=== PATIENT | male | born 1990 | race Caucasian/White ===

== ENCOUNTER 2022-01-12 12:59 | Outpatient (CLI) | payer OTHER | END 2022-01-12 23:59 | disposition EMS.NT | LOC: EMS 12:59 | DX: Z04.1 Encounter for examination and observation following transport accident (principal) ==

== ENCOUNTER 2024-08-14 08:40 | Inpatient (IN) ==
[2024-08-14 09:17] LABS: BASOPHILS % (AUTO) 0.1 %; EOSINOPHILS % (AUTO) 1.5 %; HCT - HEMATOCRIT 49.5 % (42.0-52.0); HGB - HEMOGLOBIN 16.3 g/dL (14.0-18.0); LYMPHOCYTES % (AUTO) 3.3 %; MEAN CORPUSCULAR HEMOGLOBIN 30.4 pg (27.0-31.0); MEAN CORPUSCULAR HGB CONC 32.9 g/dL (32.0-36.0); MEAN CORPUSCULAR VOLUME 92.2 fL (80.0-94.0); MEAN PLATELET VOLUME 12.2 fL (7.4-11.4); MONOCYTES % (AUTO) 3.8 %; NEUTROPHILS % (AUTO) 90.3 %; PLT - PLATELET COUNT 240 10^3/uL (130-450); RED BLOOD COUNT 5.37 10^6/uL (4.70-6.10); RED CELL DISTRIBUTION WIDTH 12.5 % (12.0-15.0)
[2024-08-14 09:30] LABS: PARTIAL THROMBOPLASTIN TIME 30.5 secs (24.9-33.3)
--- NOTE | 2024-08-14 09:30 | XRAY Report ---
PROCEDURE: XR Knee 3V RT INDICATIONS: pain, injry TECHNIQUE: 3 views of the knee(s) were acquired. COMPARISON: None. FINDINGS: Bones: No fractures or dislocations. Mild degenerative change. No suspicious bony lesions. Soft tissues: No knee joint effusion. No suspicious soft tissue calcifications or masses. IMPRESSION: No acute bony abnormality. Mild degenerative change. Reviewed by: Miguel Garcia MD on 08/14/2024 9:28 AM PDT Approved by: Miguel Garcia MD on 08/14/2024 9:28 AM PDT Station ID: [id number]
[2024-08-14 09:35] LABS: INR 1.5 (0.8-1.2); PT - PROTHROMBIN TIME 17.2 secs (9.9-12.6)
--- NOTE | 2024-08-14 09:36 | ED Physician Documentation ---
History of Present Illness Stated complaint Stated Complaint: POSTERIOR RT KNEE PX Chief complaint Chief Complaint: Ext Problem History obtained from History obtained from: Patient Additonal information Additional information: The patient comes to the emergency department chief complaint of severe left calf pain and fever and chills that started last night. He states that he has been sick for couple of weeks with an upper respiratory type of illness but that seem to be getting better for a few days. He then began to spike fevers up again and now his leg is hurting. The patient denies any other focus of illness or discomfort. He denies any respiratory symptoms that are worsening or new now. No GI symptoms. He did not have any injury to his leg. No history of blood clots. He states that other than being overweight he is fairly healthy. He is not known to be a diabetic. No exposure to anything else, illness miller. No other complaints at this time. Meds/Allgy Home Medications Ambulatory Orders Medication Instructions Recorded Confirmed No Known Home Medications 08/14/24 08/14/24 Allergies Allergies Allergy/AdvReac Type Severity Reaction Status Date / Time No Known Drug Allergies Allergy Verified 08/14/24 09:00 PFSH Active Problems All Active Problems (Updated 08/14/24 @ 15:23 by Supriya Do MD) Sepsis (Acute) Medical History Medical History (Updated 08/14/24 @ 15:23 by Supriya Do MD) No pertinent past medical history Surgical History Surgical History (Updated 08/14/24 @ 09:01 by Kristal Dotson RN, BSN) Hx of hernia repair Social History Social History (Updated 08/14/24 @ 09:02 by Kristal Dotson RN, BSN) Smoking Status: Light tobacco smoker Do you dip or chew tobacco?: Yes Relationship: Do you feel safe in your home environment?: Yes Suffered physical, verbal, emotional, or financial abuse?: No ETOH Use: Liquor Frequency: Weekly Substance Use: cannabis (any form) Exam Exam Vital Signs: Vital Signs x48h Temp Pulse Resp BP Pulse Ox 08/14/24 13:56 92 20 129/54 L 95 08/14/24 13:20 98 18 114/65 96 08/14/24 12:09 36.8 C 94 20 101/50 L 93 08/14/24 11:00 89 18 104/54 L 94 08/14/24 10:14 37.0 C 98 20 85/44 L 90 L 08/14/24 08:42 38.0 C H 132 H 24 86/71 L 97 Constitutional normal general appearance and no apparent distress Overall well-appearing patient, conversant, animated. Morbid obesity noted. HENMT normocephalic, head/scalp atraumatic, external nose normal and oral mucous membr anes normal Eyes EOMs intact bilaterally Neck/C-Spine visual inspection normal and supple Respiratory breath sounds equal bilaterally, normal respiratory effort and clear to auscultation bilaterally Cardiovascular normal heart rate noted, regular rhythm noted and no edema Gastrointestinal abdomen normal to inspection, abdomen soft to palpation and nontender to palpation Obese abdomen. No obvious distention beyond this. Genitourinary no CVA tenderness Extremities Tenderness to palpation over the mid to distal calf on the right but no obvious edema or enlargement compared to the left. No induration. No erythema. No cords. Neurology Alert, grossly intact Psychiatry mental status grossly normal Skin skin color normal Results Vitals Vitals: Vital Signs - 24 hr 08/14/24 08:42 08/14/24 09:39 08/14/24 09:40 Temperature 38.0 C H Temperature Source Oral Pulse Rate 132 H Respiratory Rate 24 Blood Pressure 86/71 L O2 Saturation 97 O2 Source Room air Pain Intensity 7 7 7 08/14/24 10:14 08/14/24 10:41 08/14/24 10:42 Temperature 37.0 C Temperature Source Oral Pulse Rate 98 Respiratory Rate 20 Blood Pressure 85/44 L O2 Saturation 90 L O2 Source Room air Pain Intensity 7 3 3 08/14/24 11:00 08/14/24 11:17 08/14/24 12:07 Temperature Temperature Source Pulse Rate 89 Respiratory Rate 18 Blood Pressure 104/54 L O2 Saturation 94 O2 Source Room air Pain Intensity 7 6 5 08/14/24 12:09 08/14/24 13:20 08/14/24 13:38 Temperature 36.8 C Temperature Source Oral Pulse Rate 94 98 Respiratory Rate 20 18 Blood Pressure 101/50 L 114/65 O2 Saturation 93 96 O2 Source Room air Room air Pain Intensity 5 5 08/14/24 13:56 08/14/24 13:56 Temperature Temperature Source Pulse Rate 92 Respiratory Rate 20 Blood Pressure 129/54 L O2 Saturation 95 O2 Source Room air Pain Intensity 5 Oxygen O2 Source Room air Labs Labs: Laboratory Tests 08/14/24 08/14/24 08/14/24 09:05 12:23 12:32 WBC 33.0 H RBC 5.37 Hgb 16.3 Hct 49.5 MCV 92.2 MCH 30.4 MCHC 32.9 RDW 12.5 Plt Count 240 MPV 12.2 H Neut # (Auto) Not Reportable Lymph # (Auto) Not Reportable [place] # (Auto) Not Reportable Eos # (Auto) Not Reportable Baso # (Auto) Not Reportable Absolute Nucleated RBC Not Reportable Total Counted 100 Band Neuts % (Manual) 19 H Reactive Lymphs % (Man) 2 Abnorm Lymph % (Manual) 0 Nucleated RBC % Not Reportable Neutrophils # (Manual) 29.4 H Lymphocytes # (Manual) 2.0 Monocytes # (Manual) 1.0 Eosinophils # (Manual) 0.7 Basophils # (Manual) 0.0 Differential Comment MANUAL DIFFERENTIAL RBC Morph Micro Appear 1+ ANISOCYTOSIS ESR 9 PT 17.2 H INR 1.5 H APTT 30.5 Sodium 131 L Potassium 3.5 Chloride 91 L Carbon Dioxide 25 Anion Gap 15.0 H BUN 29 H Creatinine 2.1 H Estimated GFR (MDRD) 37 L Glucose 307 H Lactic Acid 5.0 H* 1.5 Calcium 8.9 Total Bilirubin 2.6 H AST 68 H ALT 143 H Alkaline Phosphatase 215 H C-Reactive Protein 35.4 H Total Protein 7.3 Albumin 3.5 Globulin 3.8 Albumin/Globulin Ratio 0.9 L Lipase 30 Urine Color DARK YELLOW Urine Clarity CLEAR Urine pH 6.0 Ur Specific [place] 1.010 Urine Protein >=300 H Urine Glucose (UA) NEGATIVE Urine Ketones NEGATIVE Urine Occult Blood TRACE-LYSE Urine Nitrite NEGATIVE Urine Bilirubin MODERATE H Urine Urobilinogen 4 H Ur Leukocyte Esterase NEGATIVE Urine RBC 0-5 Urine WBC 6-10 H Urine WBC Clumps PRESENT Ur Squamous Epith Cells FEW Squamous Urine Bacteria Few Urine Casts 0-2 Course Granular Ur Microscopic Review INDICATED Urine Culture Comments NOT INDICATED Nasal Adenovirus (PCR) NOT DETECTED Nasal B. parapertussis DNA (PCR) NOT DETECTED Nasal Coronavir 229E PCR NOT DETECTED Nasal Coronavir HKU1 PCR NOT DETECTED Nasal Coronavir NL63 PCR NOT DETECTED Nasal Coronavir OC43 PCR NOT DETECTED Nasal Enterovir/Rhinovir PCR NOT DETECTED Nasal Influenza B PCR NOT DETECTED Nasal Influenza A PCR NOT DETECTED Nasal Parainfluen 1 PCR NOT DETECTED Nasal Parainfluen 2 PCR NOT DETECTED Nasal Parainfluen 3 PCR NOT DETECTED Nasal Parainfluen 4 PCR NOT DETECTED Nasal RSV (PCR) NOT DETECTED Nasal B.pertussis DNA PCR NOT DETECTED Nasal C.pneumoniae (PCR) NOT DETECTED [place] Human Metapneumo PCR NOT DETECTED Nasal M.pneumoniae (PCR) NOT DETECTED Nasal SARS-CoV-2 (PCR) NOT DETECTED 08/14/24 13:57 WBC RBC Hgb Hct MCV MCH MCHC RDW Plt Count MPV Neut # (Auto) Lymph # (Auto) [place] # (Auto) Eos # (Auto) Baso # (Auto) Absolute Nucleated RBC Total Counted Band Neuts % (Manual) Reactive Lymphs % (Man) Abnorm Lymph % (Manual) Nucleated RBC % Neutrophils # (Manual) Lymphocytes # (Manual) Monocytes # (Manual) Eosinophils # (Manual) Basophils # (Manual) Differential Comment RBC Morph Micro Appear ESR PT INR APTT Sodium 133 L Potassium 3.5 Chloride 99 L Carbon Dioxide 26 Anion Gap 8.0 BUN 31 H Creatinine 2.0 H Estimated GFR (MDRD) 39 L Glucose 230 H Lactic Acid Calcium 7.5 L Total Bilirubin AST ALT Alkaline Phosphatase C-Reactive Protein Total Protein Albumin Globulin Albumin/Globulin Ratio Lipase Urine Color Urine Clarity Urine pH Ur Specific [place] Urine Protein Urine Glucose (UA) Urine Ketones Urine Occult Blood Urine Nitrite Urine Bilirubin Urine Urobilinogen Ur Leukocyte Esterase Urine RBC Urine WBC Urine WBC Clumps Ur Squamous Epith Cells Urine Bacteria Urine Casts Ur Microscopic Review Urine Culture Comments Nasal Adenovirus (PCR) Nasal B. parapertussis DNA (PCR) Nasal Coronavir 229E PCR Nasal Coronavir HKU1 PCR Nasal Coronavir NL63 PCR Nasal Coronavir OC43 PCR Nasal Enterovir/Rhinovir PCR Nasal Influenza B PCR Nasal Influenza A PCR Nasal Parainfluen 1 PCR Nasal Parainfluen 2 PCR Nasal Parainfluen 3 PCR Nasal Parainfluen 4 PCR Nasal RSV (PCR) Nasal B.pertussis DNA PCR Nasal C.pneumoniae (PCR) [place] Human Metapneumo PCR Nasal M.pneumoniae (PCR) Nasal SARS-CoV-2 (PCR) PD Medical Decision Making ED course Complexity details: reviewed old records, reviewed results, re-evaluated patient, considered differential and d/w patient ED course: The patient was actually fairly well-appearing in the emergency department, talking animatedly and sitting up. The patient had a lot of pain in his right lower extremity, especially the calf, that he was reporting, but no redness, ind uration, or other obvious signs of infection. However, he was febrile with the expected tachycardia but also, hypotensive. I had nursing staff start 2 IVs and immediately start [id number] liters of 0.9 normal saline bolus. The patient was worked up with labs including CBC, ER abdominal panel, blood cultures, lactic acid level, CRP, and ESR. I also ordered UA, respiratory PCR panel, chest x-ray, ultrasound, and CT scan of the Right lower extremity. His CBC showed a white blood cell count of 33,000. Lactic acid level was 5.0. The patient's blood sugar was in the 300s with renal insufficiency with BUN of 29 and creatinine of 2.1. Estimated GFR of 37. Bilirubin was mildly elevated just over 2 years with diffuse mild elevations of LFTs otherwise. C-reactive protein was 35.4. CTs of the abdomen pelvis were ordered as well as CT of the chest. The patient was found to have hepatic steatosis but otherwise unremarkable. I did not see any evidence of pneumonia on the patient's CT. The lower extremity CT was read as showing some edema possibly due to a myofascial strain, but this did not really correlate with the patient's history. I discussed the case with Dr. Linares in light of the patient's sepsis and leg pain to get her opinion on the likelihood of necrotizing fasciitis. She felt this was unlikely in the setting with the CT not showing clear-cut signs of this or any free soft tissue air. The patient was feeling better after receiving nearly 6 L of IV fluid and his blood pressure had normalized to the 120s over 80s. He had defervesced after Tylenol and his heart rate and Temperature were normal. The patient had received vancomycin and Zosyn Prophylactically as I was concerned about his degree of sepsis and I had no source. I discussed the case with the on-call hospitalist who is stated that the bed should be opening up soon and the patient can be admitted. As yet, I have discussed with him I do not know what is causing his sepsis. We do have blood cultures pending and the preliminary results of these should be back tomorrow morning. The patient is agreeable to admission. Critical Care Critical Care Provided: Yes Time(min): 45 Comments: Critical care time was necessary, due to high probability of imminent and life-threatening decline, due to sepsis of unknown origin. Time Includes: Direct patient care, Review records, Reassess patient, Document care, Coordinate care, Medical consult and See progress note Data interpretation: Labs, Pulse ox, CXR (All imaging including ultrasound and CTs), Cardiac output and See progress note Discharge Plan Discharge Patient Disposition: [facility] DC/Xfer Condition: Critical Clinical Impression: Sepsis Qualifiers: Sepsis type: sepsis due to unspecified organism Sepsis acute organ dysfunction status: with acute organ dysfunction Severe sepsis acute organ dysfunction type: acute renal failure Acute renal failure type: unspecified Severe sepsis shock status: with septic shock Qualified Code(s): A41.9 - Sepsis, unspecified organism; R65.21 - Severe sepsis with septic shock; N17.9 - Acute kidney failure, unspecified Prescriptions: No Action No Known Home Medications Print Language: Persian Stand Alone Forms: PCP List
[2024-08-14 09:39] LABS: ALBUMIN 3.5 g/dL (3.2-5.5); ALBUMIN/GLOBULIN RATIO 0.9 (1.0-2.2); BILIRUBIN,TOTAL 2.6 mg/dL (0.2-1.0); CALCIUM 8.9 mg/dL (8.5-10.3); CREATININE 2.1 mg/dL (0.6-1.3); POTASSIUM 3.5 mmol/L (3.5-4.5); TOTAL PROTEIN 7.3 g/dL (6.4-8.9)
[2024-08-14] MEDS: KETOROLAC 30 MG/ML VIAL IVP STA (09:39)
[2024-08-14] MEDS: SODIUM CHLORIDE 0.9% 1,000 ML IV STA ×5 (09:40→14:26)
[2024-08-14] MEDS: ACETAMINOPHEN 500 MG TABLET PO STA (09:40)
[2024-08-14 09:45] LABS: ABNORMAL LYMPHS % (MANUAL) 0 %
[2024-08-14 09:47] LABS: BAND NEUTROPHILS % (MANUAL) 19 %; DIFFERENTIAL COMMENT MANUAL DIFFERENTIAL; EOSINOPHILS # (MANUAL) 0.7 10^3/uL (0-0.7); LYMPHOCYTES % (MANUAL) 4 %; NEUTROPHILS # (MANUAL) 29.4 10^3/uL (1.5-6.6); RBC MORPHOLOGY (MULTIPLE) 1+ ANISOCYTOSIS (NORMAL); REACTIVE LYMPHS % (MANUAL) 2 %
[2024-08-14] MEDS ORDERED: iohexoL-300 100 ML VIAL ONE ×2 (10:01→14:02)
[2024-08-14 10:04] LABS: B. PARAPERTUSSIS- RESP PCR PAN NOT DETECTED; B. PERTUSSIS- RESP PCR PANEL NOT DETECTED; C. PNEUMONIAE- RESP PCR PANEL NOT DETECTED; CORONAVIRUS 229E-RESP PCR NOT DETECTED; CORONAVIRUS HKU1-RESP PCR NOT DETECTED; CORONAVIRUS NL63-RESP PCR NOT DETECTED; CORONAVIRUS OC43-RESP PCR NOT DETECTED; HUMAN METAPNEUMOVIRUS NOT DETECTED; INFLUENZA A- RESP PCR PANEL NOT DETECTED; INFLUENZA B - RESP PCR PANEL NOT DETECTED; M. PNEUMONIAE- RESP PCR PANEL NOT DETECTED; PARAINFLUENZA VIRUS 1 NOT DETECTED; PARAINFLUENZA VIRUS 2 NOT DETECTED; PARAINFLUENZA VIRUS 4 NOT DETECTED; RHINOVIRUS/ENTEROVIRUS NOT DETECTED; RSV- RESP PCR PANEL NOT DETECTED; SARS-CoV-2 -RESP PCR PANEL NOT DETECTED
[2024-08-14] MEDS: PIPERACILLIN/TAZOBACTAM 4.5 GM in SODIUM CHLORIDE 0.9% MINIBAG 100 ML IV STA (10:41)
[2024-08-14] MEDS: iohexoL-300 100 ML VIAL IVP ONE (10:43)
[2024-08-14] MEDS: VANCOMYCIN INJ 3 GM in SODIUM CHLORIDE 0.9% 500 ML IV STA (10:45)
[2024-08-14] MEDS: HYDROcod/ACETAM 5/325 MG TABLET PO STA ×2 (11:17→13:38)
--- NOTE | 2024-08-14 11:21 | Ultrasound Report ---
PROCEDURE: US Venous Duplex RT INDICATIONS: Pain RLE, fever TECHNIQUE: Real-time imaging, as well as color and pulse Doppler interrogation, were performed of the lower extr emity deep veins from the inguinal ligament to the popliteal fossa. Attempted visualization of the ca lf veins was performed. COMPARISON: CT right lower extremity with contrast 08/14/2024 FINDINGS: The right calf veins were not adequately visualized due to extensive edema. The deep veins are normally compressible, and free of intraluminal thrombus. Color and pulse Dopple r demonstrate normal phasic intraluminal flow. There is normal augmentation response to distal compr ession maneuver. IMPRESSION: No deep venous thrombosis of the visualized right lower extremity. Reviewed by: Tomi Wlikes MD on 08/14/2024 11:20 AM PDT Approved by: Tomi Wilkes MD on 08/14/2024 11:20 AM PDT Station ID: [id number]
--- NOTE | 2024-08-14 11:45 | CT Report ---
PROCEDURE: CT Lower Extremity RT W INDICATIONS: severe pain calf, fever, sepsis TECHNIQUE: After administration of contrast 3 mm axial sections acquired of the right lower extremity from the k nee to the ankle joint, with coronal and sagittal reformats. For radiation dose reduction, the follo wing was used: automated exposure control, adjustment of mA and/or kV according to patient size. CONTRAST: 100ml omni 300 COMPARISON: Right knee x-ray 08/14/2024, right lower extremity venous Doppler ultrasound 08/14/2024 FINDINGS: Image quality: Excellent. Bones: No acute fracture or dislocation. No osseous erosions or periosteal reaction. 0.6 x 0.8 x 0.8 cm medial talar dome as a chondral defect with a free-floating osseous fragment (; ; ). Joints: The knee joint is preserved without a significant joint effusion. The ankle joint is otherwis e preserved without a significant joint effusion. Muscles: Soft tissue fat stranding and perifascial edema, predominantly along the medial head of the gastrocnemius muscle origin at the posterior femoral attachment (01/11-127). Otherwise, muscle bulk is preserved. Tendons: The quadriceps and patellar tendon contours are preserved. Vessels: No aneurysmal dilatation of the visualized arterial vasculature, which is patent. Lymph nodes: Nonenlarged 0.7 cm short axis popliteal node (12/27). Other soft tissues: Mild prepatellar/infrapatellar subcutaneous edema. No subcutaneous emphysema. IMPRESSION: 1.Medial head of the gastrocnemius myotendinous findings with fat stranding, possibly secondary to a partial myofascial tear. Please correlate with history. 2.Medial talar dome 0.8 cm osseous chondral defect with CT evidence of instability. 3.No CT evidence of osteomyelitis. Reviewed by: Tomi Wilkes MD on 08/14/2024 11:44 AM PDT Approved by: Tomi Wilkes MD on 08/14/2024 11:44 AM PDT Station ID: [id number]
[2024-08-14 12:46] LABS: BILIRUBIN,URINE MODERATE (NEGATIVE); GLUCOSE, URINE (UA) NEGATIVE (NEGATIVE); KETONES,URINE (UA) NEGATIVE (NEGATIVE); LEUKOCYTE ESTERASE, URINE NEGATIVE (NEGATIVE); NITRITE,URINE NEGATIVE (NEGATIVE); OCCULT BLOOD,URINE TRACE-LYSE (NEGATIVE); PROTEIN,URINE >=300 mg/dL (NEGATIVE); UROBILINOGEN,URINE 4 E.U./dL (NORMAL)
[2024-08-14 12:47] LABS: CLARITY,URINE CLEAR (CLEAR)
[2024-08-14 12:55] LABS: BACTERIA,URINE Few /HPF (None Seen); CASTS, URINE 0-2 Course Granular /LPF; RBC,URINE 0-5 /HPF (0-5); SQUAMOUS EPITHELIAL CELL,UR FEW Squamous (<= Few); WBC CLUMPS,URINE PRESENT
[2024-08-14 14:13] LABS: CALCIUM 7.5 mg/dL (8.5-10.3); POTASSIUM 3.5 mmol/L (3.5-4.5)
[2024-08-14 15:01] LABS: AMPHETAMINE SCREEN,URINE NEGATIVE (NEGATIVE); BARBITURATE SCREEN,UR NEGATIVE (NEGATIVE); BENZODIAZEPINES SCREEN, URINE NEGATIVE (NEGATIVE); BUPRENORPHINE SCREEN, URINE NEGATIVE (NEGATIVE); COCAINE SCREEN URINE NEGATIVE (NEGATIVE); METHADONE SCREEN, URINE NEGATIVE (NEGATIVE); METHAMPHETAMINES SCREEN, URINE NEGATIVE (NEGATIVE); OPIATE SCREEN, URINE POSITIVE (NEGATIVE); OXYCODONE SCREEN, URINE NEGATIVE (NEGATIVE); THC CANNABINOID SCREEN, URINE NEGATIVE (NEGATIVE); TRICYCLIC ANTIDEPRESSANT,URINE NEGATIVE (NEGATIVE)
--- NOTE | 2024-08-14 15:13 | CT Report ---
PROCEDURE: CT Abdomen/Pelvis W INDICATIONS: elev LFTs, septic CONTRAST: 100ml omni 300 TECHNIQUE: After the administration of intravenous contrast, a CT scan of the abdomen and pelvis was performed. Images were recorded and evaluated at appropriate window settings. Reformats: coronal and sagittal. F or radiation dose reduction, the following was used: automated exposure control, adjustment of mA and /or kV according to patient size. COMPARISON: None. FINDINGS: Image quality: Diagnostic. Lower chest: Unremarkable. Liver: No solid mass. Evaluate. The craniocaudal dimension of the liver is approximately 24.8 cm. Gallbladder: No radiopaque stones or wall thickening. Biliary tree: No intrahepatic or extrahepatic dilation, accounting for age. Spleen: Splenomegaly. Spleen measures approximately 14.3 cm. Pancreas: No pancreatic ductal dilation. Adrenals: No adrenal nodule. Kidneys and ureters: No hydronephrosis. No renal cystic lesion which requires follow up. No solid mas s. Stomach, bowel and peritoneum: No gastric or small bowel dilation. No abnormal wall thickening. No pa thologic free fluid. Lymph nodes: No central or retroperitoneal adenopathy. Vessels: No infrarenal aortic aneurysm. Patent portal vein. PELVIS Reproductive organs: Unremarkable. Bladder: No abnormal wall thickening. Pelvic lymph nodes: No pelvic adenopathy by size criteria. Bones: No aggressive osseous abnormality. Other: Fat-containing right inguinal hernia.. IMPRESSION: 1. Hepatomegaly, diffuse hepatic steatosis. 2. Splenomegaly. 3. No acute process identified. Reviewed by: Miguel Garcia MD on 08/14/2024 3:11 PM PDT Approved by: Miguel Garcia MD on 08/14/2024 3:11 PM PDT Station ID: [id number]
--- NOTE | 2024-08-14 15:14 | CT Report ---
PROCEDURE: CT Chest W INDICATIONS: SEPTIC CONTRAST: 100ml omni 300 TECHNIQUE: After the administration of intravenous contrast, a CT scan of the chest was performed. Images were recorded and evaluated at appropriate window settings. Reformats: axial MIP of the chest, coronal and sagittal. For radiation dose reduction, the following was used: automated exposure control, adjustme nt of mA and/or kV according to patient size. COMPARISON: CT abdomen and pelvis from the same date. FINDINGS: Image quality: Diagnostic. Chest wall and lower neck: No thyroid nodule which requires sonographic follow up. No breast mass. No axillary or supraclavicular adenopathy by size. Lungs and pleura: No consolidation. No pleural effusions. No pneumothorax. No suspicious pulmonary n odules which require follow up. Mediastinum: Heart size is normal. No pericardial effusion. No large vessel abnormality. No mediastin al adenopathy by size criteria. Bones: No aggressive osseous abnormality. Upper Abdomen: Hepatomegaly, diffuse hepatic steatosis, splenomegaly. IMPRESSION: 1. No acute process in the chest. 2. Hepatomegaly, diffuse hepatic steatosis, splenomegaly. Reviewed by: Miguel Garcia MD on 08/14/2024 3:13 PM PDT Approved by: Miguel Garcia MD on 08/14/2024 3:13 PM PDT Station ID: [id number]
[2024-08-14 15:41] LABS: INFECTIOUS MONONUCLEOSIS NEGATIVE (Negative)
--- OUTSIDE RECORDS SUMMARY | 2024-08-14 16:28 | EXTERNAL MEDICAL SUMMARY RPT | Continuity of Care Document ---
Author Organization [facility] Address [address] [place] [address] Phone Results/Labs test date facility value unit notes Result panel 1 ABNORMAL LYMPHS % (MANUAL) 2024-08-14 09:05 [facility] 0 % (missing) BASOPHILS # (MANUAL) 2024-08-14 09:05 [facility] 0.0 10 3/ul (missing) EOSINOPHILS # (MANUAL) 2024-08-14 09:05 [facility] 0.7 10 3/ul (missing) ALBUMIN/GLOBULIN RATIO 2024-08-14 09:05 [facility] 0.9 (missing ) (missing) RBC MORPHOLOGY (MULTIPLE) 2024-08-14 09:05 [facility] 1+ ANISOCYTOSIS (missing ) (missing) MONOCYTES # (MANUAL) 2024-08-14 09:05 [facility] 1.0 10 3/ul (missing) INR 2024-08-14 09:05 [facility] 1.5 (missing ) Oral Anticoagulant Indication INR range Venous Thrombosis, P.E. 2.0 - 3.0 Mechanical Valve 2.5 - 3.5 TOTAL CELLS COUNTED 2024-08-14 09:05 [facility] 100 (missing ) (missing) MEAN PLATELET VOLUME 2024-08-14 09:05 [facility] 12.2 fl (missing) RED CELL DISTRIBUTION WIDTH 2024-08-14 09:05 [facility] 12.5 % (missing) SODIUM 2024-08-14 09:05 [facility] 131 mmol/l (missing) ALT ALANINE AMINOTRANSFERASE 2024-08-14 09:05 [facility] 143 iu/l As of October 2022 testing method has changed, this may include reference ranges. ANION GAP 2024-08-14 09:05 [facility] 15.0 (missing ) (missing) HGB - HEMOGLOBIN 2024-08-14 09:05 [facility] 16.3 g/dl (missing) PT - PROTHROMBIN TIME 2024-08-14 09:05 [facility] 17.2 secs (missing) BAND NEUTROPHILS % (MANUAL) 2024-08-14 09:05 [facility] 19 % (missing) REACTIVE LYMPHS % (MANUAL) 2024-08-14 09:05 [facility] 2 % (missing) LYMPHOCYTES # (MANUAL) 2024-08-14 09:05 [facility] 2.0 10 3/ul (missing) CREATININE 2024-08-14 09:05 [facility] 2.1 mg/dl As of October 2022 testing method has changed, this may include reference ranges. BILIRUBIN,TOTAL 2024-08-14 09:05 [facility] 2.6 mg/dl As of October 2022 testing method has changed, this may include reference ranges. ALKALINE PHOSPHATASE 2024-08-14 09:05 [facility] 215 iu/l As of October 2022 testing method has changed, this may include reference ranges. PLT - PLATELET COUNT 2024-08-14 09:05 [facility] 240 10 3/ul (missing) CARBON DIOXIDE - CO2 2024-08-14 09:05 [facility] 25 mmol/l As of October 2022 testing method has changed, this may include reference ranges. BUN - BLOOD UREA NITROGEN 2024-08-14 09:05 [facility] 29 mg/dl As of October 2022 testing method has changed, this may include reference ranges. NEUTROPHILS # (MANUAL) 2024-08-14 09:05 [facility] 29.4 10 3/ul (missing) ALBUMIN 2024-08-14 09:05 [facility] 3.5 g/dl As of October 2022 testing method has changed, this may include reference ranges. POTASSIUM 2024-08-14 09:05 [facility] 3.5 mmol/l As of October 2022 testing method has changed, this may include reference ranges. GLOBULIN 2024-08-14 09:05 [facility] 3.8 g/dl (missing) LIPASE 2024-08-14 09:05 [facility] 30 u/l As of October 2022 testing method has changed, this may include reference ranges. MEAN CORPUSCULAR HEMOGLOBIN 2024-08-14 09:05 [facility] 30.4 pg (missing) PARTIAL THROMBOPLASTIN TIME 2024-08-14 09:05 [facility] 30.5 secs (missing) GLUCOSE 2024-08-14 09:05 [facility] 307 mg/dl As of October 2022 testing method has changed, this may include reference ranges. MEAN CORPUSCULAR HGB CONC 2024-08-14 09:05 [facility] 32.9 g/dl (missing) WHITE BLOOD COUNT 2024-08-14 09:05 [facility] 33.0 x10 3/ul (missing) CRP - C-REACTIVE PROTEIN 2024-08-14 09:05 [facility] 35.4 mg/dl As of October 2022 testing method has changed, this may include reference ranges. GFR - MDRD 2024-08-14 09:05 [facility] 37 (missing ) Social History date description facility
--- NOTE | 2024-08-14 16:32 | PHARMACY PROGRESS NOTE ---
Best Possible Medication History Admit Date and Time: 08/14/24 [id number] Home Medications Medication Instructions Recorded Confirmed Type No Known Home Medications 08/14/24 08/14/24 History Processed by: Pharmacy Medications reviewed in ED?: Yes Medication History completed: Yes Patient Interview: Pt interview ONLY source BPM Statement: As the person ultimately responsible for medication therapy, providers are able to order a medication from an existing home medication list in [facility] via the "Reconcile Routine" prior to Confirmation of that medication by forestry support specialist. [facility] practice is discouraged except when the physician, in their clinical judgment, deems that a medical need exists for a medication without regard to previous use.
--- NOTE | 2024-08-14 16:47 | HISTORY & PHYSICAL EXAMINATION ---
Chief Complaint Chief Complaint Chief Complaint: Calf pain History of Present Illness Admitted From Admitted From:: Home with fianc History Obtained From History obtained from: Interview with patient and fianc at bedside History of Present Illness HPI Comment/Other: 33-year-old male who recently recovered from an upper respiratory illness presents with pain in his right calf. He reports 1 episode of fevers a week ago that resolved spontaneously. He denies chest pain, dyspnea, bowel irregularity. He reports that he thinks he caught his viral illness from his fiance, who works with children In the ER, workup was significant for WBC 33, creatinine 2.1, lactic acid 5, elevated LFTs, elevated CRP. UA without concern for infection. Respiratory viral panel negative, Drug screen positive for opiates, but he had already received [place] in the ER. He also had low blood pressures which responded to sepsis fluids. CT chest, abdomen, pelvis, lower extremity were nonspecific for infectious source. Venous duplex was negative for clot. Hospitalist was contacted for admission for sepsis of unknown origin Meds/Allgy Home Medications Ambulatory Orders Medication Instructions Recorded Confirmed No Known Home Medications 08/14/24 08/14/24 Allergies Allergies Allergy/AdvReac Type Severity Reaction Status Date / Time No Known Drug Allergies Allergy Verified 08/14/24 09:00 PFSH Active Problems All Active Problems (Updated 08/14/24 @ 16:41 by Isma John DNP) Hyperglycemia (Acute) Transaminitis (Acute) Acute kidney injury (Acute) Right calf pain (Acute) Sepsis (Acute) Medical History Medical History (Updated 08/14/24 @ 16:41 by Isma John DNP) No pertinent past medical history Surgical History Surgical History (Updated 08/14/24 @ 09:01 by Kristal Dotson, RN, BSN) Hx of hernia repair Social History Social History (Updated 08/14/24 @ 09:02 by Kristal Dotson, RN, BSN) Smoking Status: Light tobacco smoker Do you dip or chew tobacco?: Yes Relationship: Do you feel safe in your home environment?: Yes Suffered physical, verbal, emotional, or financial abuse?: No ETOH Use: Liquor Frequency: Weekly Substance Use: cannabis (any form) Review of Systems Status of ROS: 10 or more systems reviewed and unremarkable except as noted in history and below Constitutional Reports: Fever (1 episode); Denies: Chills Cardiovascular Denies: Irregular heart rate, chest pain, palpitations or shortness of breath with exertion Respiratory Denies: Shortness of breath or Cough Gastrointestinal Denies: Abdominal pain Musculoskeletal Reports: Other (Pain and swelling in his right calf) Integumentary/Breast Reports: Other (Cut on left hand, scabbed over. Acne on occiput) Exam Exam Vital Signs: Vital Signs x48h Temp Pulse Resp BP Pulse Ox 08/14/24 14:30 93 17 96/74 93 08/14/24 13:56 92 20 129/54 L 95 08/14/24 13:20 98 18 114/65 96 08/14/24 12:09 36.8 C 94 20 101/50 L 93 08/14/24 11:00 89 18 104/54 L 94 08/14/24 10:14 37.0 C 98 20 85/44 L 90 L 08/14/24 08:42 38.0 C H 132 H 24 86/71 L 97 Constitutional normal general appearance, no apparent distress and abnormal body habitus (obese) HENMT normocephalic and head/scalp atraumatic Pimple on occiput, Draining Eyes PERRL Neck/C-Spine visual inspection normal Neck nontender to palpation, swelling difficult to assess due to body habitus Respiratory breath sounds equal bilaterally and normal respiratory effort Cardiovascular normal heart rate noted Gastrointestinal abdomen normal to inspection Extremities normal to inspection Right calf tender to palpation without areas of fluctuance. Slightly warm to the touch Neurology GCS 15 Psychiatry oriented x3 Skin skin color normal Conclusion/Plan Problem List (1) Sepsis: Plan: WBC 33, initial heart rate 132, BP 86/71 with respiratory rate of 24 Was given vancomycin and Zosyn in the ER as well as 5 L NS bolus Unsure of the source of his infection. CT chest, abdomen, pelvis, lower extremity without infectious signs. Skin intact other than a pimple on the back of his head which is draining and nonerythematous. He had a recent upper respiratory viral infection that he caught from his fiance who works with children Check Lydia-Ahuja, mono, hepatitis panel Continue Zosyn renally dosed to avoid toxicity, consult pharmacy for vancomycin LR at 100 Qualifiers: Acute renal failure type: unspecified Sepsis acute organ dysfunction status: with acute organ dysfunction Sepsis type: sepsis due to unspecified organism Severe sepsis acute organ dysfunction type: acute renal failure S evere sepsis shock status: with septic shock Qualified Code(s): A41.9 - Sepsis, unspecified organism; R65.21 - Severe sepsis with septic shock; N17.9 - Acute kidney failure, unspecified (2) Right calf pain: Plan: Venous duplex negative for clot X-ray knee negative. CT lower extremity with some mild tenderness findings with fat stranding concerning for myofascial tear. No fluctuance to palpation This is possibly a postviral myositis (3) Acute kidney injury: Plan: Prerenal, likely secondary to sepsis Received 5 L fluid bolus CMP in a.m. (4) Transaminitis: Plan: Possibly secondary to viral infection versus dehydration Check hepatitis panel Fluids as above CMP in a.m. (5) Hyperglycemia: Plan: No history of diabetes Check A1c in a.m. SSI Plan Admit to inpatient Full code He names his fiance is his surrogate decision-maker. Does not have power of city attorney Lab Results Lab results reviewed: Yes 08/14/24 09:05 08/14/24 13:57 Diagnostic Imaging Results Diagnostic Imaging Results: positive Final report reviewed Diagnostic Imaging Results Comments: CTs, x-ray, ultrasound as described above Core Measures Anticipated LOS I expect patient to be DC'd or transferred within 96 hours.: Yes DVT/VTE - Prophylaxis VTE/DVT Prophylaxis med ordered at admit?: Yes
[2024-08-14] MEDS: LACTATED RINGERS 1,000 ML IV SCH (17:58)
[2024-08-14] MEDS: INSULIN LISPRO 300 UNIT/3 ML PEN SUBQ SCH (17:58)
[2024-08-14] MEDS: SODIUM CHLORIDE FLUSH 0.9% 10 ML SYRINGE IVP SCH (17:58)
[2024-08-14] MEDS: PIPERACILLIN/TAZOBACTAM 3.375 GM in SODIUM CHLORIDE 0.9% MINIBAG 100 ML IV SCH (21:43)
[2024-08-15 01:07] LABS: HBsAG SCREEN Negative (Negative); HCV AB Non Reactive (Non Reactive); HEPATITIS B CORE IGM AB Negative (Negative)
[2024-08-15 06:05] LABS: BASOPHILS % (AUTO) 0.6 %; EOSINOPHILS % (AUTO) 2.1 %; HCT - HEMATOCRIT 41.9 % (42.0-52.0); HGB - HEMOGLOBIN 13.6 g/dL (14.0-18.0); LYMPHOCYTES % (AUTO) 4.6 %; MEAN CORPUSCULAR HEMOGLOBIN 30.2 pg (27.0-31.0); MEAN CORPUSCULAR HGB CONC 32.5 g/dL (32.0-36.0); MEAN CORPUSCULAR VOLUME 92.9 fL (80.0-94.0); MEAN PLATELET VOLUME 12.2 fL (7.4-11.4); NEUTROPHILS % (AUTO) 84.6 %; PLT - PLATELET COUNT 188 10^3/uL (130-450); RED BLOOD COUNT 4.51 10^6/uL (4.70-6.10); RED CELL DISTRIBUTION WIDTH 12.8 % (12.0-15.0)
[2024-08-15 06:13] LABS: ABNORMAL LYMPHS % (MANUAL) 0 %
[2024-08-15 06:24] LABS: ALBUMIN 2.9 g/dL (3.2-5.5); BILIRUBIN,TOTAL 2.4 mg/dL (0.2-1.0); CREATININE 1.7 mg/dL (0.6-1.3); POTASSIUM 3.4 mmol/L (3.5-4.5); TOTAL PROTEIN 5.9 g/dL (6.4-8.9)
[2024-08-15 06:28] LABS: BAND NEUTROPHILS % (MANUAL) 19 %; DIFFERENTIAL COMMENT MANUAL DIFFERENTIAL; EOSINOPHILS # (MANUAL) 1.1 10^3/uL (0-0.7); LYMPHOCYTES % (MANUAL) 7 %; MONOCYTES # (MANUAL) 1.4 10^3/uL (0.0-1.0); NEUTROPHILS # (MANUAL) 23.5 10^3/uL (1.5-6.6); PLATELET ESTIMATE, MANUAL NORMAL (130-450,000) (NORMAL); PLATELET MORPHOLOGY NORMAL APPEARANCE (NORMAL); RBC MORPHOLOGY (MULTIPLE) NORMAL APPEARANCE (NORMAL); WBC MORPHOLOGY (MULTIPLE) NORMAL APPEARANCE (NORMAL)
[2024-08-15] MEDS: ENOXAPARIN 40 MG/0.4 ML SYRINGE SUBQ SCH (08:21)
[2024-08-15] MEDS: ACETAMINOPHEN 325 MG TABLET PO PRN (08:26)
[2024-08-15 10:09] LABS: ESTIMATED AVERAGE GLUCOSE 258 mg/dL (70-100); HEMOGLOBIN A1c% 10.6 % (4.27-6.07)
[2024-08-15] MEDS ORDERED: VANCOMYCIN INJ 1.25 GM in SODIUM CHLORIDE 0.9% 250 ML IV SCH (11:00)
[2024-08-15] MEDS: VANCOMYCIN INJ 1 GM, VANCOMYCIN INJ 500 MG in SODIUM CHLORIDE 0.9% 500 ML IV SCH (11:07)
[2024-08-15] MEDS: SODIUM CHLORIDE FLUSH 0.9% 10 ML SYRINGE IVP PRN (11:07)
[2024-08-15] MEDS: POTASSIUM CHLORIDE 20 MEQ TABLET PO ONE (11:24)
--- NOTE | 2024-08-15 13:02 | PROVIDER PROGRESS NOTE ---
Subjective Prog Note Date Prog Note Date: 08/15/24 Subjective Pt reports feeling: Improved Current Medications Current Medications Current Medications: Current Medications Generic Name Dose Route Start Last Admin Trade Name Freq PRN Reason Stop Dose Admin Acetaminophen 650 mg 08/14/24 17:23 08/15/24 08:26 Acetaminophen 325 Mg Tablet PO 650 mg Q4HR PRN Administration Pain 1 to 4, or Fever Enoxaparin Sodium 40 mg 08/15/24 09:00 08/15/24 08:21 Enoxaparin 40 Mg/0.4 Ml Syringe SUBQ 40 mg DAILY ALHAJI Administration Lactated Ringer's 1,000 mls @ 100 mls/hr 08/14/24 17:23 08/15/24 04:11 Lr IV 100 mls/hr .Q10H ALHAJI Administration Piperacillin Sod/Tazobactam 100 mls @ 25 mls/hr 08/14/24 22:00 08/15/24 10:30 Sod 3.375 gm/ Sodium Chloride IV Infused Q8H ALHAJI Infusion Insulin Glargine-yfgn 10 unit 08/15/24 13:00 Insulin Glargine-Yfgn 300 Unit/3 Ml Pen SUBQ 08/15/24 13:01 ONCE ONE Insulin Glargine-yfgn 20 unit 08/15/24 21:00 Insulin Glargine-Yfgn 300 Unit/3 Ml Pen SUBQ QPM ALHAJI Insulin Human Lispro 1 - 5 unit 08/14/24 17:23 08/15/24 12:00 Insulin Lispro 300 Unit/3 Ml Pen SUBQ 3 unit 0800,1200,1700,2100 ALHAJI Administration Protocol Sodium Chloride 10 ml 08/14/24 17:23 08/15/24 11:07 Sodium Chloride Flush 0.9% 10 Ml Syringe IVP 10 ml PRN PRN Administration NEEDED PER PROVIDER ORDERS Sodium Chloride 10 ml 08/14/24 17:23 08/15/24 08:21 Sodium Chloride Flush 0.9% 10 Ml Syringe IVP 10 ml 0100,0900,1700 ALHAJI Administration Objective Vital Signs/Intake & Output Reviewed Vital Signs: Yes Vital Signs: Vital Signs x48h Temp Pulse Resp BP Pulse Ox 08/15/24 07:38 36.6 C 108 H 20 112/74 95 08/15/24 05:23 36.5 C 111 H 20 119/67 95 Intake & Output: Intake & Output 08/12/24 08/13/24 08/14/24 08/15/24 23:59 23:59 23:59 23:59 Intake Total 6160 / 6160 1940 / 1940 Output Total 1350 / 1350 Balance 6160 / 6160 590 / 590 Weight (kg) 193 kg Objective General Appearance: positive No acute distress and Alert Eyes Bilateral: positive Normal inspection and PERRL ENT: positive ENT inspection nml Neck: positive Nml inspection Respiratory: positive Chest non-tender Cardiovascular: positive Regular rate & rhythm and No murmur Abdomen: positive Non-tender Skin: positive Other (Scattered areas of readiness. Redness on back of right calf) Extremities: positive Non-tender Neurologic/Psychiatric: positive Oriented x3 Lab Results 08/15/24 05:34 08/15/24 05:34 Other Labs: Lab Results x24hrs 08/15/24 08/15/24 08/15/24 Range/Units 11:15 07:31 05:34 WBC 28.0 H (4.8-10.8) x10^3/uL RBC 4.51 L (4.70-6.10) 10^6/uL Hgb 13.6 L (14.0-18.0) g/dL Hct 41.9 L (42.0-52.0) % MCV 92.9 (80.0-94.0) fL MCH 30.2 (27.0-31.0) pg MCHC 32.5 (32.0-36.0) g/dL RDW 12.8 (12.0-15.0) % Plt Count 188 (130-450) 10^3/uL MPV 12.2 H (7.4-11.4) fL Neut # (Auto) Not Reportable Lymph # (Auto) Not Reportable Miller # (Auto) Not Reportable Eos # (Auto) Not Reportable Baso # (Auto) Not Reportable Absolute Nucleated RBC Not Reportable Total Counted 100 Band Neuts % (Manual) 19 H (0 - 10) % Abnorm Lymph % (Manual) 0 % Nucleated RBC % Not Reportable Neutrophils # (Manual) 23.5 H (1.5-6.6) 10^3/uL Lymphocytes # (Manual) 2.0 (1.5-3.5) 10^3/uL Monocytes # (Manual) 1.4 H (0.0-1.0) 10^3/uL Eosinophils # (Manual) 1.1 H (0-0.7) 10^3/uL Basophils # (Manual) 0.0 (0-0.1) 10^3/uL Differential Comment MANUAL DIFFERENTIAL WBC Morphology NORMAL APPEARANCE (NORMAL) Platelet Estimate NORMAL (130-450,000) (NORMAL) Platelet Morphology NORMAL APPEARANCE (NORMAL) RBC Morph Micro Appear NORMAL APPEARANCE (NORMAL) Sodium 135 (135-145) mmol/L Potassium 3.4 L (3.5-4.5) mmol/L Chloride 101 (101-111) mmol/L Carbon Dioxide 25 (21-32) mmol/L Anion Gap 9.0 (6-13) BUN 30 H (6-20) mg/dL Creatinine 1.7 H (0.6-1.3) mg/dL Estimated GFR (MDRD) 47 L (>89) Glucose 243 H (74-104) mg/dL POC Whole Bld Glucose 271 240 (70-100) mg/dL Estimat Average Glucose 258 H (70-100) mg/dL Hemoglobin A1c % 10.6 H (4.27-6.07) % Calcium 8.0 L (8.5-10.3) mg/dL Total Bilirubin 2.4 H (0.2-1.0) mg/dL AST 68 H (10-42) IU/L ALT 114 H (10-60) IU/L Alkaline Phosphatase 174 H (42-121) IU/L Total Creatine Kinase (30-223) IU/L Total Protein 5.9 L (6.4-8.9) g/dL Albumin 2.9 L (3.2-5.5) g/dL Globulin 3.0 (2.1-4.2) g/dL Albumin/Globulin Ratio 1.0 (1.0-2.2) Urine RBC (0-5) /HPF Urine WBC (0-3) /HPF Urine WBC Clumps Ur Squamous Epith Cells (<= Few) Urine Bacteria (None Seen) /HPF Urine Casts /LPF Urine Culture Comments Urine Opiates Screen (NEGATIVE) Ur Buprenorphine Scrn (NEGATIVE) Ur Oxycodone Screen (NEGATIVE) Urine Methadone Screen (NEGATIVE) Ur Barbiturates Screen (NEGATIVE) Ur Tricyclics Screen (NEGATIVE) Ur Phencyclidine Scrn (NEGATIVE) Ur Amphetamine Screen (NEGATIVE) U Methamphetamines Scrn (NEGATIVE) U Benzodiazepines Scrn (NEGATIVE) Urine Cocaine Screen (NEGATIVE) U Cannabinoids Screen (NEGATIVE) Ur Drug Screen Comment Hepatitis A IgM Ab (Negative) Hep Bs Antigen (Negative) Hep B Core IgM Ab (Negative) Hepatitis C Antibody (Non Reactive) Hepatitis C Interp (.) Infectious Miller Assay (Negative) 08/14/24 08/14/24 08/14/24 Range/Units 20:48 17:31 13:57 WBC (4.8-10.8) x10^3/uL RBC (4.70-6.10) 10^6/uL Hgb (14.0-18.0) g/dL Hct (42.0-52.0) % MCV (80.0-94.0) fL MCH (27.0-31.0) pg MCHC (32.0-36.0) g/dL RDW (12.0-15.0) % Plt Count (130-450) 10^3/uL MPV (7.4-11.4) fL Neut # (Auto) Lymph # (Auto) Miller # (Auto) Eos # (Auto) Baso # (Auto) Absolute Nucleated RBC Total Counted Band Neuts % (Manual) (0 - 10) % Abnorm Lymph % (Manual) % Nucleated RBC % Neutrophils # (Manual) (1.5-6.6) 10^3/uL Lymphocytes # (Manual) (1.5-3.5) 10^3/uL Monocytes # (Manual) (0.0-1.0) 10^3/uL Eosinophils # (Manual) (0-0.7) 10^3/uL Basophils # (Manual) (0-0.1) 10^3/uL Differential Comment WBC Morphology (NORMAL) Platelet Estimate (NORMAL) Platelet Morphology (NORMAL) RBC Morph Micro Appear (NORMAL) Sodium 133 L (135-145) mmol/L Potassium 3.5 (3.5-4.5) mmol/L Chloride 99 L (101-111) mmol/L Carbon Dioxide 26 (21-32) mmol/L Anion Gap 8.0 (6-13) BUN 31 H (6-20) mg/dL Creatinine 2.0 H (0.6-1.3) mg/dL Estimated GFR (MDRD) 39 L (>89) Glucose 230 H (74-104) mg/dL POC Whole Bld Glucose 239 211 (70-100) mg/dL Estimat Average Glucose (70-100) mg/dL Hemoglobin A1c % (4.27-6.07) % Calcium 7.5 L (8.5-10.3) mg/dL Total Bilirubin (0.2-1.0) mg/dL AST (10-42) IU/L ALT (10-60) IU/L Alkaline Phosphatase (42-121) IU/L Total Creatine Kinase 46 (30-223) IU/L Total Protein (6.4-8.9) g/dL Albumin (3.2-5.5) g/dL Globulin (2.1-4.2) g/dL Albumin/Globulin Ratio (1.0-2.2) Urine RBC (0-5) /HPF Urine WBC (0-3) /HPF Urine WBC Clumps Ur Squamous Epith Cells (<= Few) Urine Bacteria (None Seen) /HPF Urine Casts /LPF Urine Culture Comments Urine Opiates Screen (NEGATIVE) Ur Buprenorphine Scrn (NEGATIVE) Ur Oxycodone Screen (NEGATIVE) Urine Methadone Screen (NEGATIVE) Ur Barbiturates Screen (NEGATIVE) Ur Tricyclics Screen (NEGATIVE) Ur Phencyclidine Scrn (NEGATIVE) Ur Amphetamine Screen (NEGATIVE) U Methamphetamines Scrn (NEGATIVE) U Benzodiazepines Scrn (NEGATIVE) Urine Cocaine Screen (NEGATIVE) U Cannabinoids Screen (NEGATIVE) Ur Drug Screen Comment Hepatitis A IgM Ab (Negative) Hep Bs Antigen (Negative) Hep B Core IgM Ab (Negative) Hepatitis C Antibody (Non Reactive) Hepatitis C Interp (.) Infectious Miller Assay (Negative) 08/14/24 08/14/24 Range/Units 12:32 09:05 WBC (4.8-10.8) x10^3/uL RBC (4.70-6.10) 10^6/uL Hgb (14.0-18.0) g/dL Hct (42.0-52.0) % MCV (80.0-94.0) fL MCH (27.0-31.0) pg MCHC (32.0-36.0) g/dL RDW (12.0-15.0) % Plt Count (130-450) 10^3/uL MPV (7.4-11.4) fL Neut # (Auto) Lymph # (Auto) Miller # (Auto) Eos # (Auto) Baso # (Auto) Absolute Nucleated RBC Total Counted Band Neuts % (Manual) (0 - 10) % Abnorm Lymph % (Manual) % Nucleated RBC % Neutrophils # (Manual) (1.5-6.6) 10^3/uL Lymphocytes # (Manual) (1.5-3.5) 10^3/uL Monocytes # (Manual) (0.0-1.0) 10^3/uL Eosinophils # (Manual) (0-0.7) 10^3/uL Basophils # (Manual) (0-0.1) 10^3/uL Differential Comment WBC Morphology (NORMAL) Platelet Estimate (NORMAL) Platelet Morphology (NORMAL) RBC Morph Micro Appear (NORMAL) Sodium (135-145) mmol/L Potassium (3.5-4.5) mmol/L Chloride (101-111) mmol/L Carbon Dioxide (21-32) mmol/L Anion Gap (6-13) BUN (6-20) mg/dL Creatinine (0.6-1.3) mg/dL Estimated GFR (MDRD) (>89) Glucose (74-104) mg/dL POC Whole Bld Glucose (70-100) mg/dL Estimat Average Glucose (70-100) mg/dL Hemoglobin A1c % (4.27-6.07) % Calcium (8.5-10.3) mg/dL Total Bilirubin (0.2-1.0) mg/dL AST (10-42) IU/L ALT (10-60) IU/L Alkaline Phosphatase (42-121) IU/L Total Creatine Kinase (30-223) IU/L Total Protein (6.4-8.9) g/dL Albumin (3.2-5.5) g/dL Globulin (2.1-4.2) g/dL Albumin/Globulin Ratio (1.0-2.2) Urine RBC 0-5 (0-5) /HPF Urine WBC 6-10 H (0-3) /HPF Urine WBC Clumps PRESENT Ur Squamous Epith Cells FEW Squamous (<= Few) Urine Bacteria Few (None Seen) /HPF Urine Casts 0-2 Course Granular /LPF Urine Culture Comments NOT INDICATED Urine Opiates Screen POSITIVE H (NEGATIVE) Ur Buprenorphine Scrn NEGATIVE (NEGATIVE) Ur Oxycodone Screen NEGATIVE (NEGATIVE) Urine Methadone Screen NEGATIVE (NEGATIVE) Ur Barbiturates Screen NEGATIVE (NEGATIVE) Ur Tricyclics Screen NEGATIVE (NEGATIVE) Ur Phencyclidine Scrn NEGATIVE (NEGATIVE) Ur Amphetamine Screen NEGATIVE (NEGATIVE) U Methamphetamines Scrn NEGATIVE (NEGATIVE) U Benzodiazepines Scrn NEGATIVE (NEGATIVE) Urine Cocaine Screen NEGATIVE (NEGATIVE) U Cannabinoids Screen NEGATIVE (NEGATIVE) Ur Drug Screen Comment CUTOFF CONC BELOW: Hepatitis A IgM Ab Negative (Negative) Hep Bs Antigen Negative (Negative) Hep B Core IgM Ab Negative (Negative) Hepatitis C Antibody Non Reactive (Non Reactive) Hepatitis C Interp Comment (.) Infectious Miller Assay NEGATIVE (Negative) Assessment/Plan Problem List (1) Sepsis: Impression: Initial WBC 33, heart rate 132, BP 86/71 with respiratory rate of 24 Was given vancomycin and Zosyn in the ER as well as 5 L NS bolus Unsure of the source of his infection. CT chest, abdomen, pelvis, lower extremity without infectious signs. Skin intact other than a pimple on the back of his head which is draining and nonerythematous. He had a recent upper respiratory viral infection that he caught from his fiance who works with children 08/15/2024: WBC has improved to 28 this morning. He has developed a few spots of readiness. He has an area of redness on the back of his right calf which could be the source of infection. Possibility of "red man" syndrome not excluded, discontinuing vancomycin. Continue Zosyn, renally dosed to avoid toxicity. Daily BMP. Hepatitis panel negative. Lydia-Ahuja virus pending Qualifiers: Acute renal failure type: unspecified Sepsis acute organ dysfunction status: with acute organ dysfunction Sepsis type: sepsis due to unspecified organism Severe sepsis acute organ dysfunction type: acute renal failure S evere sepsis shock status: with septic shock Qualified Code(s): A41.9 - Sepsis, unspecified organism; R65.21 - Severe sepsis with septic shock; N17.9 - Acute kidney failure, unspecified (2) Right calf pain: Impression: Venous duplex negative for clot X-ray knee negative. CT lower extremity with some mild tenderness findings with fat stranding concerning for myofascial tear. No fluctuance to palpation This is possibly a postviral myositis (3) Acute kidney injury: Impression: His creatinine has improved from 2-1.7 after aggressive IV resuscitation. I am continuing LR at 100. CMP in a.m. (4) Transaminitis: Impression: Laboratory Tests 08/14/24 08/15/24 09:05 05:34 Total Bilirubin 2.6 H 2.4 H AST 68 H 68 H ALT 143 H 114 H Alkaline Phosphatase 215 H 174 H LFTs are improving as described above. Continue IV fluid resuscitation. Hepatitis panel negative. Continue daily (5) Hyperglycemia: Impression: A1c 10.6. I gave him a dose of 10 units Lantus today, and will start 20 units Lantus nightly tonight. Continuing glucose checks ACHS with sliding scale insulin and will use today's insulin requirement to adjust long-acting insulin regimen tomorrow. He has been provided with information on the diabetes management program at [facility]
[2024-08-15] MEDS: INSULIN GLARGINE-YFGN 300 UNIT/3 ML PEN SUBQ ONE (13:24)
[2024-08-15] MEDS ORDERED: diphenhydrAMINE 25 MG CAPSULE PO PRN (14:27)
[2024-08-15] MEDS: CYCLOBENZAPRINE 10 MG TABLET PO PRN (16:00)
[2024-08-15] MEDS: INSULIN LISPRO 300 UNIT/3 ML PEN SUBQ SCH (17:03)
[2024-08-15] MEDS: INSULIN GLARGINE-YFGN 300 UNIT/3 ML PEN SUBQ SCH (21:36)
[2024-08-16 05:34] LABS: BASOPHILS % (AUTO) 0.2 %; EOSINOPHILS # (AUTO) 0.5 10^3/uL (0.0-0.7); EOSINOPHILS % (AUTO) 1.8 %; HCT - HEMATOCRIT 42.8 % (42.0-52.0); HGB - HEMOGLOBIN 13.6 g/dL (14.0-18.0); LYMPHOCYTES # (AUTO) 2.4 10^3/uL (1.5-3.5); LYMPHOCYTES % (AUTO) 9.5 %; MEAN CORPUSCULAR HEMOGLOBIN 30.1 pg (27.0-31.0); MEAN CORPUSCULAR HGB CONC 31.8 g/dL (32.0-36.0); MEAN CORPUSCULAR VOLUME 94.7 fL (80.0-94.0); MEAN PLATELET VOLUME 11.9 fL (7.4-11.4); MONOCYTES # (AUTO) 1.9 10^3/uL (0.0-1.0); MONOCYTES % (AUTO) 7.2 %; NEUTROPHILS # (AUTO) 19.1 10^3/uL (1.5-6.6); NEUTROPHILS % (AUTO) 73.9 %; PLT - PLATELET COUNT 235 10^3/uL (130-450); RED BLOOD COUNT 4.52 10^6/uL (4.70-6.10); RED CELL DISTRIBUTION WIDTH 13.2 % (12.0-15.0); WHITE BLOOD COUNT 25.8 x10^3/uL (4.8-10.8)
[2024-08-16 05:38] LABS: SLIDE REVIEW? Indicated
[2024-08-16 05:49] LABS: ALBUMIN 2.9 g/dL (3.2-5.5); ALBUMIN/GLOBULIN RATIO 0.8 (1.0-2.2); BILIRUBIN,TOTAL 1.7 mg/dL (0.2-1.0); CALCIUM 8.6 mg/dL (8.5-10.3); CREATININE 1.2 mg/dL (0.6-1.3); POTASSIUM 3.4 mmol/L (3.5-4.5); TOTAL PROTEIN 6.4 g/dL (6.4-8.9)
[2024-08-16 06:02] LABS: PLATELET ESTIMATE, MANUAL NORMAL (130-450,000) (NORMAL); PLATELET MORPHOLOGY NORMAL APPEARANCE (NORMAL); RBC MORPHOLOGY (MULTIPLE) NORMAL APPEARANCE (NORMAL); WBC MORPHOLOGY (MULTIPLE) NORMAL APP (NORMAL)
[2024-08-16 06:03] LABS: DIFFERENTIAL COMMENT MANUAL=AUTO DIFF
[2024-08-16] MEDS: POTASSIUM CHLORIDE 20 MEQ TABLET PO ONE (08:07)
[2024-08-16] MEDS: INSULIN GLARGINE-YFGN 300 UNIT/3 ML PEN SUBQ SCH (11:50)
--- NOTE | 2024-08-16 15:21 | PROVIDER PROGRESS NOTE ---
Subjective Prog Note Date Prog Note Date: 08/16/24 Subjective Pt reports feeling: Improved Current Medications Current Medications Current Medications: Current Medications Generic Name Dose Route Start Last Admin Trade Name Freq PRN Reason Stop Dose Admin Acetaminophen 650 mg 08/14/24 17:23 08/15/24 21:53 Acetaminophen 325 Mg Tablet PO 650 mg Q4HR PRN Administration Pain 1 to 4, or Fever Cyclobenzaprine HCl 10 mg 08/15/24 15:38 08/15/24 16:00 Cyclobenzaprine 10 Mg Tablet PO 10 mg TID PRN Administration Spasms Diphenhydramine HCl 25 mg 08/15/24 14:27 Diphenhydramine 25 Mg Capsule PO Q4HR PRN Allergy Symptoms Enoxaparin Sodium 40 mg 08/15/24 09:00 08/16/24 08:06 Enoxaparin 40 Mg/0.4 Ml Syringe SUBQ 40 mg DAILY ALHAJI Administration Lactated Ringer's 1,000 mls @ 100 mls/hr 08/14/24 17:23 08/16/24 10:28 Lr IV 100 mls/hr .Q10H ALHAJI Administration Piperacillin Sod/Tazobactam 100 mls @ 25 mls/hr 08/14/24 22:00 08/16/24 13:41 Sod 3.375 gm/ Sodium Chloride IV 25 mls/hr Q8H ALHAJI Administration Insulin Glargine-yfgn 20 unit 08/16/24 11:00 08/16/24 11:50 Insulin Glargine-Yfgn 300 Unit/3 Ml Pen SUBQ 20 unit BID ALHAJI Administration Insulin Human Lispro 1 - 9 unit 08/15/24 17:00 08/16/24 11:48 Insulin Lispro 300 Unit/3 Ml Pen SUBQ 3 unit 0800,1200,1700,2100 ALHAJI Administration Protocol Sodium Chloride 10 ml 08/14/24 17:23 08/15/24 11:07 Sodium Chloride Flush 0.9% 10 Ml Syringe IVP 10 ml PRN PRN Administration NEEDED PER PROVIDER ORDERS Sodium Chloride 10 ml 08/14/24 17:23 08/16/24 08:06 Sodium Chloride Flush 0.9% 10 Ml Syringe IVP Not Given 0100,0900,1700 [facility] Objective Vital Signs/Intake & Output Reviewed Vital Signs: Yes Vital Signs: Vital Signs x48h Temp Pulse Resp BP Pulse Ox 04/26/25 09:11 36.5 C 87 22 135/91 H 93 Intake & Output: Intake & Output 08/13/24 08/14/24 08/15/24 08/16/24 23:59 23:59 23:59 23:59 Intake Total 6160 / 6160 5223 / 5223 3207 / 3207 Output Total 3425 / 3425 1850 / 1850 Balance 6160 / 6160 1798 / 1798 1357 / 1357 Weight (kg) 193 kg Objective General Appearance: positive No acute distress and Alert Eyes Bilateral: positive Normal inspection and PERRL ENT: positive ENT inspection nml Neck: positive Nml inspection Respiratory: positive Chest non-tender Cardiovascular: positive Regular rate & rhythm and No murmur Abdomen: positive Non-tender Skin: positive Other (Scattered areas of redness. Redness on back of right calf, Improving) Extremities: positive Non-tender Neurologic/Psychiatric: positive Oriented x3 Lab Results 08/16/24 05:13 08/16/24 05:13 Other Labs: Lab Results x24hrs 08/16/24 08/16/24 08/16/24 Range/Units 11:47 07:41 05:13 WBC 25.8 H (4.8-10.8) x10^3/uL RBC 4.52 L (4.70-6.10) 10^6/uL Hgb 13.6 L (14.0-18.0) g/dL Hct 42.8 (42.0-52.0) % MCV 94.7 H (80.0-94.0) fL MCH 30.1 (27.0-31.0) pg MCHC 31.8 L (32.0-36.0) g/dL RDW 13.2 (12.0-15.0) % Plt Count 235 (130-450) 10^3/uL MPV 11.9 H (7.4-11.4) fL Neut # (Auto) 19.1 H (1.5-6.6) 10^3/uL Lymph # (Auto) 2.4 (1.5-3.5) 10^3/uL Mobile # (Auto) 1.9 H (0.0-1.0) 10^3/uL Eos # (Auto) 0.5 (0.0-0.7) 10^3/uL Baso # (Auto) 0.0 (0.0-0.1) 10^3/uL Absolute Nucleated RBC 0.00 x10^3/uL Band Neuts % (Manual) Not Reportable Abnorm Lymph % (Manual) Not Reportable Nucleated RBC % 0.0 /100WBC Neutrophils # (Manual) Not Reportable Lymphocytes # (Manual) Not Reportable Monocytes # (Manual) Not Reportable Eosinophils # (Manual) Not Reportable Basophils # (Manual) Not Reportable Differential Comment MANUAL=AUTO DIFF Manual Slide Review Indicated WBC Morphology NORMAL ROE (NORMAL) Platelet Estimate NORMAL (130-450,000) (NORMAL) Platelet Morphology NORMAL APPEARANCE (NORMAL) RBC Morph Micro Appear NORMAL APPEARANCE (NORMAL) Sodium 138 (135-145) mmol/L Potassium 3.4 L (3.5-4.5) mmol/L Chloride 102 (101-111) mmol/L Carbon Dioxide 27 (21-32) mmol/L Anion Gap 9.0 (6-13) BUN 22 H (6-20) mg/dL Creatinine 1.2 (0.6-1.3) mg/dL Estimated GFR (MDRD) 71 L (>89) Glucose 235 H (74-104) mg/dL POC Whole Bld Glucose 219 224 (70-100) mg/dL Calcium 8.6 (8.5-10.3) mg/dL Total Bilirubin 1.7 H (0.2-1.0) mg/dL AST 88 H (10-42) IU/L ALT 143 H (10-60) IU/L Alkaline Phosphatase 203 H (42-121) IU/L Total Protein 6.4 (6.4-8.9) g/dL Albumin 2.9 L (3.2-5.5) g/dL Globulin 3.5 (2.1-4.2) g/dL Albumin/Globulin Ratio 0.8 L (1.0-2.2) 08/15/24 08/15/24 Range/Units 20:36 16:28 WBC (4.8-10.8) x10^3/uL RBC (4.70-6.10) 10^6/uL Hgb (14.0-18.0) g/dL Hct (42.0-52.0) % MCV (80.0-94.0) fL MCH (27.0-31.0) pg MCHC (32.0-36.0) g/dL RDW (12.0-15.0) % Plt Count (130-450) 10^3/uL MPV (7.4-11.4) fL Neut # (Auto) (1.5-6.6) 10^3/uL Lymph # (Auto) (1.5-3.5) 10^3/uL Mobile # (Auto) (0.0-1.0) 10^3/uL Eos # (Auto) (0.0-0.7) 10^3/uL Baso # (Auto) (0.0-0.1) 10^3/uL Absolute Nucleated RBC x10^3/uL Band Neuts % (Manual) Abnorm Lymph % (Manual) Nucleated RBC % /100WBC Neutrophils # (Manual) Lymphocytes # (Manual) Monocytes # (Manual) Eosinophils # (Manual) Basophils # (Manual) Differential Comment Manual Slide Review WBC Morphology (NORMAL) Platelet Estimate (NORMAL) Platelet Morphology (NORMAL) RBC Morph Micro Appear (NORMAL) Sodium (135-145) mmol/L Potassium (3.5-4.5) mmol/L Chloride (101-111) mmol/L Carbon Dioxide (21-32) mmol/L Anion Gap (6-13) BUN (6-20) mg/dL Creatinine (0.6-1.3) mg/dL Estimated GFR (MDRD) (>89) Glucose (74-104) mg/dL POC Whole Bld Glucose 234 241 (70-100) mg/dL Calcium (8.5-10.3) mg/dL Total Bilirubin (0.2-1.0) mg/dL AST (10-42) IU/L ALT (10-60) IU/L Alkaline Phosphatase (42-121) IU/L Total Protein (6.4-8.9) g/dL Albumin (3.2-5.5) g/dL Globulin (2.1-4.2) g/dL Albumin/Globulin Ratio (1.0-2.2) Assessment/Plan Problem List (1) Sepsis: Impression: Initial WBC 33, heart rate 132, BP 86/71 with respiratory rate of 24 Was given vancomycin and Zosyn in the ER as well as 5 L NS bolus Unsure of the source of his infection. CT chest, abdomen, pelvis, lower extremity without infectious signs. Skin intact other than a pimple on the back of his head which is draining and nonerythematous. He had a recent upper respiratory viral infection that he caught from his fiance who works with children 08/15/2024: WBC has improved to 28 this morning. He has developed a few spots of readiness. He has an area of redness on the back of his right calf which could be the source of infection. Possibility of "red man" syndrome not excluded, discontinuing vancomycin. Continue Zosyn, renally dosed to avoid toxicity. Daily BMP. Hepatitis panel negative. Lydia-Ahuja virus pending 08/16/2024: WBC continues to improve. Today it is 25.8. Redness on the back of his right leg is improving. I am continuing his Zosyn and adjusting the dose based on kidney function to prevent toxicity. I anticipate another 1 to 2 days Qualifiers: Acute renal failure type: unspecified Sepsis acute organ dysfunction status: with acute organ dysfunction Sepsis type: sepsis due to unspecified organism Severe sepsis acute organ dysfunction type: acute renal failure S evere sepsis shock status: with septic shock Qualified Code(s): A41.9 - Sepsis, unspecified organism; R65.21 - Severe sepsis with septic shock; N17.9 - Acute kidney failure, unspecified (2) Right calf pain: Impression: Venous duplex negative for clot X-ray knee negative. CT lower extremity with some mild tenderness findings with fat stranding concerning for myofascial tear. No fluctuance to palpation This is possibly a postviral myositis (3) Acute kidney injury: Impression: Creatinine has improved to 1.2 today. Continue IVF, CMP in a.m. (4) Transaminitis: Impression: Laboratory Tests 08/16/24 05:13 Total Bilirubin 1.7 H AST 88 H ALT 143 H Alkaline Phosphatase 203 H LFTs worsened today. I have stopped his as needed Tylenol. Hepatitis panel negative. Continue daily CMP (5) Hyperglycemia: Impression: A1c 10.6. Yesterday received 30 units total Lantus Glucose still elevated above 200 Increasing Lantus to 20 units twice daily. Nursing is escalating his SSI per protocol Plan to adjust Lantus dose again tomorrow Is now established with [facility] diabetes management program
[2024-08-17] MEDS: oxyCODONE 5 MG TABLET PO SCH (00:49)
[2024-08-17 05:20] LABS: BASOPHILS % (AUTO) 0.8 %; EOSINOPHILS % (AUTO) 2.2 %; HCT - HEMATOCRIT 40.8 % (42.0-52.0); HGB - HEMOGLOBIN 13.3 g/dL (14.0-18.0); LYMPHOCYTES % (AUTO) 14.9 %; MEAN CORPUSCULAR HEMOGLOBIN 30.2 pg (27.0-31.0); MEAN CORPUSCULAR HGB CONC 32.6 g/dL (32.0-36.0); MEAN CORPUSCULAR VOLUME 92.5 fL (80.0-94.0); MEAN PLATELET VOLUME 12.2 fL (7.4-11.4); MONOCYTES % (AUTO) 9.8 %; NEUTROPHILS % (AUTO) 60.9 %; PLT - PLATELET COUNT 253 10^3/uL (130-450); RED BLOOD COUNT 4.41 10^6/uL (4.70-6.10); RED CELL DISTRIBUTION WIDTH 13.1 % (12.0-15.0); WHITE BLOOD COUNT 19.7 x10^3/uL (4.8-10.8)
[2024-08-17 05:34] LABS: ALBUMIN 2.8 g/dL (3.2-5.5); ALBUMIN/GLOBULIN RATIO 0.8 (1.0-2.2); BILIRUBIN,TOTAL 1.2 mg/dL (0.2-1.0); CALCIUM 8.1 mg/dL (8.5-10.3); POTASSIUM 3.3 mmol/L (3.5-4.5); TOTAL PROTEIN 6.5 g/dL (6.4-8.9)
[2024-08-17 05:35] LABS: ABNORMAL LYMPHS % (MANUAL) 0 %
[2024-08-17 05:59] LABS: BAND NEUTROPHILS % (MANUAL) 1 %; EOSINOPHILS # (MANUAL) 1.6 10^3/uL (0-0.7); LYMPHOCYTES # (MANUAL) 3.3 10^3/uL (1.5-3.5); LYMPHOCYTES % (MANUAL) 17 %; METAMYELOCYTES % (MANUAL) 3 %; MONOCYTES # (MANUAL) 0.8 10^3/uL (0.0-1.0); MYELOCYTES % (MANUAL) 5 %; NEUTROPHILS # (MANUAL) 12.4 10^3/uL (1.5-6.6)
[2024-08-17 06:00] LABS: DIFFERENTIAL COMMENT MANUAL DIFFERENTIAL; PLATELET ESTIMATE, MANUAL NORMAL (130-450,000) (NORMAL); PLATELET MORPHOLOGY NORMAL APPEARANCE (NORMAL); RBC MORPHOLOGY (MULTIPLE) NORMAL APPEARANCE (NORMAL); WBC MORPHOLOGY (MULTIPLE) NORMAL APPEARANCE (NORMAL)
[2024-08-17] MEDS: POTASSIUM CHLORIDE 20 MEQ TABLET PO ONE (11:01)
--- NOTE | 2024-08-17 11:27 | PROVIDER PROGRESS NOTE ---
Subjective Prog Note Date Prog Note Date: 08/17/24 Subjective Pt reports feeling: No change Current Medications Current Medications Current Medications: Current Medications Generic Name Dose Route Start Last Admin Trade Name Freq PRN Reason Stop Dose Admin Cyclobenzaprine HCl 10 mg 08/17/24 14:00 Cyclobenzaprine 10 Mg Tablet PO TID ALHAJI Diphenhydramine HCl 25 mg 08/15/24 14:27 Diphenhydramine 25 Mg Capsule PO Q4HR PRN Allergy Symptoms Doxycycline Hyclate 100 mg 08/17/24 12:00 Doxycycline 100 Mg Tablet PO BID ALHAJI Enoxaparin Sodium 40 mg 08/15/24 09:00 08/17/24 08:06 Enoxaparin 40 Mg/0.4 Ml Syringe SUBQ 40 mg DAILY ALHAJI Administration Piperacillin Sod/Tazobactam 100 mls @ 25 mls/hr 08/14/24 22:00 08/17/24 10:40 Sod 3.375 gm/ Sodium Chloride IV Infused Q8H ALHAJI Infusion Ibuprofen 400 mg 08/17/24 10:18 Ibuprofen 400 Mg Tablet PO Q6HR PRN Moderate Pain (Level 4-6) Insulin Glargine-yfgn 20 unit 08/16/24 11:00 08/17/24 08:07 Insulin Glargine-Yfgn 300 Unit/3 Ml Pen SUBQ 20 unit BID ALHAJI Administration Insulin Human Lispro 1 - 9 unit 08/15/24 17:00 08/17/24 08:07 Insulin Lispro 300 Unit/3 Ml Pen SUBQ 1 unit 0800,1200,1700,2100 ALHAJI Administration Protocol Oxycodone HCl 5 mg 08/17/24 01:00 08/17/24 00:49 Oxycodone 5 Mg Tablet PO 08/18/24 00:59 5 mg ONCE ALHAJI Administration Sodium Chloride 10 ml 08/14/24 17:23 08/15/24 11:07 Sodium Chloride Flush 0.9% 10 Ml Syringe IVP 10 ml PRN PRN Administration NEEDED PER PROVIDER ORDERS Sodium Chloride 10 ml 08/14/24 17:23 08/17/24 08:06 Sodium Chloride Flush 0.9% 10 Ml Syringe IVP 10 ml 0100,0900,1700 ALHAJI Administration Objective Vital Signs/Intake & Output Reviewed Vital Signs: Yes Vital Signs: Vital Signs x48h Temp Pulse Resp BP Pulse Ox 08/17/24 07:50 36.3 C L 86 20 136/82 H 98 Intake & Output: Intake & Output 08/14/24 08/15/24 08/16/24 08/17/24 23:59 23:59 23:59 23:59 Intake Total 6160 / 6160 5223 / 5223 6224 / 6224 2597 / 2597 Output Total 3425 / 3425 2325 / 2325 1050 / 1050 Balance 6160 / 6160 1798 / 1798 3899 / 3899 1547 / 1547 Weight (kg) 193 kg Objective General Appearance: positive No acute distress and Alert Eyes Bilateral: positive Normal inspection and PERRL ENT: positive ENT inspection nml Neck: positive Nml inspection Respiratory: positive Chest non-tender Cardiovascular: positive Regular rate & rhythm and No murmur Abdomen: positive Non-tender Skin: positive Other (Scattered areas of redness. Redness on back of right calf, Improving) Extremities: positive Non-tender Neurologic/Psychiatric: positive Oriented x3 Lab Results 08/17/24 04:57 08/17/24 04:57 Other Labs: Lab Results x24hrs 08/17/24 08/17/24 08/16/24 Range/Units 07:48 04:57 20:35 WBC 19.7 H (4.8-10.8) x10^3/uL RBC 4.41 L (4.70-6.10) 10^6/uL Hgb 13.3 L (14.0-18.0) g/dL Hct 40.8 L (42.0-52.0) % MCV 92.5 (80.0-94.0) fL MCH 30.2 (27.0-31.0) pg MCHC 32.6 (32.0-36.0) g/dL RDW 13.1 (12.0-15.0) % Plt Count 253 (130-450) 10^3/uL MPV 12.2 H (7.4-11.4) fL Neut # (Auto) Not Reportable Lymph # (Auto) Not Reportable [place] # (Auto) Not Reportable Eos # (Auto) Not Reportable Baso # (Auto) Not Reportable Absolute Nucleated RBC Not Reportable Total Counted 100 Band Neuts % (Manual) 1 (0 - 10) % Abnorm Lymph % (Manual) 0 % Metamyelocytes % 3 H ( - 0) % Myelocytes % 5 H ( - 0) % Nucleated RBC % Not Reportable Neutrophils # (Manual) 12.4 H (1.5-6.6) 10^3/uL Lymphocytes # (Manual) 3.3 (1.5-3.5) 10^3/uL Monocytes # (Manual) 0.8 (0.0-1.0) 10^3/uL Eosinophils # (Manual) 1.6 H (0-0.7) 10^3/uL Basophils # (Manual) 0.0 (0-0.1) 10^3/uL Differential Comment MANUAL DIFFERENTIAL WBC Morphology NORMAL APPEARANCE (NORMAL) Platelet Estimate NORMAL (130-450,000) (NORMAL) Platelet Morphology NORMAL APPEARANCE (NORMAL) RBC Morph Micro Appear NORMAL APPEARANCE (NORMAL) Sodium 137 (135-145) mmol/L Potassium 3.3 L (3.5-4.5) mmol/L Chloride 100 L (101-111) mmol/L Carbon Dioxide 29 (21-32) mmol/L Anion Gap 8.0 (6-13) BUN 16 (6-20) mg/dL Creatinine 1.0 (0.6-1.3) mg/dL Estimated GFR (MDRD) 87 L (>89) Glucose 165 H (74-104) mg/dL POC Whole Bld Glucose 166 216 (70-100) mg/dL Calcium 8.1 L (8.5-10.3) mg/dL Magnesium 1.7 (1.7-2.3) mg/dL Total Bilirubin 1.2 H (0.2-1.0) mg/dL AST 82 H (10-42) IU/L ALT 144 H (10-60) IU/L Alkaline Phosphatase 190 H (42-121) IU/L Total Protein 6.5 (6.4-8.9) g/dL Albumin 2.8 L (3.2-5.5) g/dL Globulin 3.7 (2.1-4.2) g/dL Albumin/Globulin Ratio 0.8 L (1.0-2.2) 08/16/24 08/16/24 Range/Units 16:36 11:47 WBC (4.8-10.8) x10^3/uL RBC (4.70-6.10) 10^6/uL Hgb (14.0-18.0) g/dL Hct (42.0-52.0) % MCV (80.0-94.0) fL MCH (27.0-31.0) pg MCHC (32.0-36.0) g/dL RDW (12.0-15.0) % Plt Count (130-450) 10^3/uL MPV (7.4-11.4) fL Neut # (Auto) Lymph # (Auto) [place] # (Auto) Eos # (Auto) Baso # (Auto) Absolute Nucleated RBC Total Counted Band Neuts % (Manual) (0 - 10) % Abnorm Lymph % (Manual) % Metamyelocytes % ( - 0) % Myelocytes % ( - 0) % Nucleated RBC % Neutrophils # (Manual) (1.5-6.6) 10^3/uL Lymphocytes # (Manual) (1.5-3.5) 10^3/uL Monocytes # (Manual) (0.0-1.0) 10^3/uL Eosinophils # (Manual) (0-0.7) 10^3/uL Basophils # (Manual) (0-0.1) 10^3/uL Differential Comment WBC Morphology (NORMAL) Platelet Estimate (NORMAL) Platelet Morphology (NORMAL) RBC Morph Micro Appear (NORMAL) Sodium (135-145) mmol/L Potassium (3.5-4.5) mmol/L Chloride (101-111) mmol/L Carbon Dioxide (21-32) mmol/L Anion Gap (6-13) BUN (6-20) mg/dL Creatinine (0.6-1.3) mg/dL Estimated GFR (MDRD) (>89) Glucose (74-104) mg/dL POC Whole Bld Glucose 189 219 (70-100) mg/dL Calcium (8.5-10.3) mg/dL Magnesium (1.7-2.3) mg/dL Total Bilirubin (0.2-1.0) mg/dL AST (10-42) IU/L ALT (10-60) IU/L Alkaline Phosphatase (42-121) IU/L Total Protein (6.4-8.9) g/dL Albumin (3.2-5.5) g/dL Globulin (2.1-4.2) g/dL Albumin/Globulin Ratio (1.0-2.2) Assessment/Plan Problem List (1) Sepsis: Impression: Initial WBC 33, heart rate 132, BP 86/71 with respiratory rate of 24 Was given vancomycin and Zosyn in the ER as well as 5 L NS bolus Unsure of the source of his infection. CT chest, abdomen, pelvis, lower extremity without infectious signs. Skin intact other than a pimple on the back of his head which is draining and nonerythematous. He had a recent upper respiratory viral infection that he caught from his fiance who works with children 08/15/2024: WBC has improved to 28 this morning. He has developed a few spots of readiness. He has an area of redness on the back of his right calf which could be the source of infection. Possibility of "red man" syndrome not excluded, discontinuing vancomycin. Continue Zosyn, renally dosed to avoid toxicity. Daily BMP. Hepatitis panel negative. Lydia-Ahuja virus pending 08/16/2024: WBC continues to improve. Today it is 25.8. Redness on the back of his right leg is improving. I am continuing his Zosyn and adjusting the dose based on kidney function to prevent toxicity. I anticipate another 1 to 2 days 08/17/2024: Blood cultures remain no growth to date. Continue Zosyn while monitoring for renal toxicity. I have added doxycycline as his rash has gotten a little bit worse. Will continue IV Zosyn until leukocytosis resolves. WBC improving, went from 25.8-19.7 today Qualifiers: Acute renal failure type: unspecified Sepsis acute organ dysfunction status: with acute organ dysfunction Sepsis type: sepsis due to unspecified organism Severe sepsis acute organ dysfunction type: acute renal failure S evere sepsis shock status: with septic shock Qualified Code(s): A41.9 - Sepsis, unspecified organism; R65.21 - Severe sepsis with septic shock; N17.9 - Acute kidney failure, unspecified (2) Right calf pain: Impression: Venous duplex negative for clot X-ray knee negative. CT lower extremity with some mild tenderness findings with fat stranding concerning for myofascial tear. No fluctuance to palpation This is possibly a postviral myositis I have ordered scheduled Flexeril 3 times daily and as needed ibuprofen. He required 1 dose of oxycodone overnight, I am attempting to optimize nonnarcotic pain management (3) Acute kidney injury: Impression: Creatinine has improved to 1 today. Continue IVF, CMP in a.m. (4) Transaminitis: Impression: LFTs stable. Hepatitis panel negative. Continue daily CMP. 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 Yesterday received 40 units total Lantus Glucose has improved to 165 this morning Will monitor his glucose ACHS to see how much sliding scale insulin he needs today Anticipate increasing morning dose of Lantus tomorrow
[2024-08-17] MEDS: DOXYCYCLINE 100 MG TABLET PO SCH (12:03)
[2024-08-17] MEDS: MAGNESIUM OXIDE 400 MG TABLET PO SCH (12:03)
[2024-08-17] MEDS: CYCLOBENZAPRINE 10 MG TABLET PO SCH (14:42)
[2024-08-17] MEDS: IBUPROFEN 400 MG TABLET PO PRN (17:41)
[2024-08-18 05:04] LABS: BASOPHILS % (AUTO) 0.3 %; EOSINOPHILS % (AUTO) 2.4 %; HCT - HEMATOCRIT 40.7 % (42.0-52.0); HGB - HEMOGLOBIN 13.4 g/dL (14.0-18.0); LYMPHOCYTES % (AUTO) 16.2 %; MEAN CORPUSCULAR HEMOGLOBIN 30.2 pg (27.0-31.0); MEAN CORPUSCULAR HGB CONC 32.9 g/dL (32.0-36.0); MEAN CORPUSCULAR VOLUME 91.7 fL (80.0-94.0); MEAN PLATELET VOLUME 11.8 fL (7.4-11.4); MONOCYTES % (AUTO) 9.9 %; NEUTROPHILS % (AUTO) 60.5 %; PLT - PLATELET COUNT 241 10^3/uL (130-450); RED BLOOD COUNT 4.44 10^6/uL (4.70-6.10); RED CELL DISTRIBUTION WIDTH 13.2 % (12.0-15.0); WHITE BLOOD COUNT 14.3 x10^3/uL (4.8-10.8)
[2024-08-18 05:16] LABS: ABNORMAL LYMPHS % (MANUAL) 0 %
[2024-08-18 05:26] LABS: ALBUMIN 2.8 g/dL (3.2-5.5); ALBUMIN/GLOBULIN RATIO 0.7 (1.0-2.2); BILIRUBIN,TOTAL 1.1 mg/dL (0.2-1.0); CALCIUM 8.1 mg/dL (8.5-10.3); CREATININE 0.8 mg/dL (0.6-1.3); POTASSIUM 3.5 mmol/L (3.5-4.5); TOTAL PROTEIN 6.7 g/dL (6.4-8.9)
[2024-08-18 05:35] LABS: BAND NEUTROPHILS % (MANUAL) 3 %; BASOPHILS # (MANUAL) 0.1 10^3/uL (0-0.1); BASOPHILS % (MANUAL) 1 %; EOSINOPHILS # (MANUAL) 0.3 10^3/uL (0-0.7); LYMPHOCYTES # (MANUAL) 2.9 10^3/uL (1.5-3.5); LYMPHOCYTES % (MANUAL) 20 %; METAMYELOCYTES % (MANUAL) 1 %; MYELOCYTES % (MANUAL) 5 %; NEUTROPHILS # (MANUAL) 9.2 10^3/uL (1.5-6.6)
[2024-08-18 05:36] LABS: DIFFERENTIAL COMMENT MANUAL DIFFERENTIAL; PLATELET ESTIMATE, MANUAL NORMAL (130-450,000) (NORMAL); PLATELET MORPHOLOGY NORMAL APPEARANCE (NORMAL); RBC MORPHOLOGY (MULTIPLE) NORMAL APPEARANCE (NORMAL); WBC MORPHOLOGY (MULTIPLE) NORMAL APPEARANCE (NORMAL)
--- NOTE | 2024-08-18 14:59 | PROVIDER PROGRESS NOTE ---
Subjective Prog Note Date Prog Note Date: 08/18/24 Subjective Pt reports feeling: Improved Current Medications Current Medications Current Medications: Current Medications Generic Name Dose Route Start Last Admin Trade Name Freq PRN Reason Stop Dose Admin Cyclobenzaprine HCl 10 mg 08/17/24 14:00 08/18/24 14:41 Cyclobenzaprine 10 Mg Tablet PO 10 mg TID ALHAJI Administration Diphenhydramine HCl 25 mg 08/15/24 14:27 Diphenhydramine 25 Mg Capsule PO Q4HR PRN Allergy Symptoms Doxycycline Hyclate 100 mg 08/17/24 12:00 08/18/24 08:26 Doxycycline 100 Mg Tablet PO 100 mg BID ALHAJI Administration Enoxaparin Sodium 60 mg 08/18/24 21:00 Enoxaparin 60 Mg/0.6 Ml Syringe SUBQ BID ALHAJI Ibuprofen 400 mg 08/17/24 10:18 08/18/24 00:02 Ibuprofen 400 Mg Tablet PO 400 mg Q6HR PRN Administration Moderate Pain (Level 4-6) Insulin Glargine-yfgn 20 unit 08/16/24 11:00 08/18/24 08:25 Insulin Glargine-Yfgn 300 Unit/3 Ml Pen SUBQ 20 unit BID ALHAJI Administration Insulin Human Lispro 1 - 9 unit 08/15/24 17:00 08/18/24 11:45 Insulin Lispro 300 Unit/3 Ml Pen SUBQ 5 unit 0800,1200,1700,2100 ALHAJI Administration Protocol Magnesium Oxide 400 mg 08/17/24 12:00 08/18/24 07:52 Magnesium Oxide 400 Mg Tablet PO 400 mg DAILYWM ALHAJI Administration Sodium Chloride 10 ml 08/14/24 17:23 08/15/24 11:07 Sodium Chloride Flush 0.9% 10 Ml Syringe IVP 10 ml PRN PRN Administration NEEDED PER PROVIDER ORDERS Sodium Chloride 10 ml 08/14/24 17:23 08/18/24 08:26 Sodium Chloride Flush 0.9% 10 Ml Syringe IVP 10 ml 0100,0900,1700 ALHAJI Administration Objective Vital Signs/Intake & Output Reviewed Vital Signs: Yes Vital Signs: Vital Signs x48h Temp Pulse Resp BP Pulse Ox 08/18/24 08:20 36.5 C 90 18 148/109 H 95 Intake & Output: Intake & Output 08/15/24 08/16/24 08/17/2425 23:59 23:59 23:59 23:59 Intake Total 5223 / 5223 6224 / 6224 4137 / 4137 1690 / 1690 Output Total 3425 / 3425 2325 / 2325 2725 / 2725 1125 / 1125 Balance 1798 / 1798 3899 / 3899 1412 / 1412 565 / 565 Objective General Appearance: positive No acute distress and Alert Eyes Bilateral: positive Normal inspection and PERRL ENT: positive ENT inspection nml Neck: positive Nml inspection Respiratory: positive Chest non-tender Cardiovascular: positive Regular rate & rhythm and No murmur Abdomen: positive Non-tender Skin: positive Other (Scattered areas of redness. Redness on the back of his right calf is becoming more defined) Extremities: positive Non-tender Neurologic/Psychiatric: positive Oriented x3 Lab Results 08/18/24 04:49 08/18/24 04:49 Other Labs: Lab Results x24hrs 08/18/24 08/18/24 08/18/24 Range/Units 11:26 07:43 04:49 WBC 14.3 H (4.8-10.8) x10^3/uL RBC 4.44 L (4.70-6.10) 10^6/uL Hgb 13.4 L (14.0-18.0) g/dL Hct 40.7 L (42.0-52.0) % MCV 91.7 (80.0-94.0) fL MCH 30.2 (27.0-31.0) pg MCHC 32.9 (32.0-36.0) g/dL RDW 13.2 (12.0-15.0) % Plt Count 241 (130-450) 10^3/uL MPV 11.8 H (7.4-11.4) fL Neut # (Auto) Not Reportable Lymph # (Auto) Not Reportable [place] # (Auto) Not Reportable Eos # (Auto) Not Reportable Baso # (Auto) Not Reportable Absolute Nucleated RBC Not Reportable Total Counted 100 Band Neuts % (Manual) 3 (0 - 10) % Abnorm Lymph % (Manual) 0 % Metamyelocytes % 1 H ( - 0) % Myelocytes % 5 H ( - 0) % Nucleated RBC % Not Reportable Neutrophils # (Manual) 9.2 H (1.5-6.6) 10^3/uL Lymphocytes # (Manual) 2.9 (1.5-3.5) 10^3/uL Monocytes # (Manual) 1.0 (0.0-1.0) 10^3/uL Eosinophils # (Manual) 0.3 (0-0.7) 10^3/uL Basophils # (Manual) 0.1 (0-0.1) 10^3/uL Differential Comment MANUAL DIFFERENTIAL WBC Morphology NORMAL APPEARANCE (NORMAL) Platelet Estimate NORMAL (130-450,000) (NORMAL) Platelet Morphology NORMAL APPEARANCE (NORMAL) RBC Morph Micro Appear NORMAL APPEARANCE (NORMAL) Sodium 138 (135-145) mmol/L Potassium 3.5 (3.5-4.5) mmol/L Chloride 102 (101-111) mmol/L Carbon Dioxide 30 (21-32) mmol/L Anion Gap 6.0 (6-13) BUN 12 (6-20) mg/dL Creatinine 0.8 (0.6-1.3) mg/dL Estimated GFR (MDRD) 113 (>89) Glucose 191 H (74-104) mg/dL POC Whole Bld Glucose 229 169 (70-100) mg/dL Calcium 8.1 L (8.5-10.3) mg/dL Total Bilirubin 1.1 H (0.2-1.0) mg/dL AST 41 (10-42) IU/L ALT 105 H (10-60) IU/L Alkaline Phosphatase 155 H (42-121) IU/L Total Protein 6.7 (6.4-8.9) g/dL Albumin 2.8 L (3.2-5.5) g/dL Globulin 3.9 (2.1-4.2) g/dL Albumin/Globulin Ratio 0.7 L (1.0-2.2) EBV DNA (PCR) (Negative) 08/17/24 08/17/24 08/14/24 Range/Units 20:52 16:46 09:05 WBC (4.8-10.8) x10^3/uL RBC (4.70-6.10) 10^6/uL Hgb (14.0-18.0) g/dL Hct (42.0-52.0) % MCV (80.0-94.0) fL MCH (27.0-31.0) pg MCHC (32.0-36.0) g/dL RDW (12.0-15.0) % Plt Count (130-450) 10^3/uL MPV (7.4-11.4) fL Neut # (Auto) Lymph # (Auto) [place] # (Auto) Eos # (Auto) Baso # (Auto) Absolute Nucleated RBC Total Counted Band Neuts % (Manual) (0 - 10) % Abnorm Lymph % (Manual) % Metamyelocytes % ( - 0) % Myelocytes % ( - 0) % Nucleated RBC % Neutrophils # (Manual) (1.5-6.6) 10^3/uL Lymphocytes # (Manual) (1.5-3.5) 10^3/uL Monocytes # (Manual) (0.0-1.0) 10^3/uL Eosinophils # (Manual) (0-0.7) 10^3/uL Basophils # (Manual) (0-0.1) 10^3/uL Differential Comment WBC Morphology (NORMAL) Platelet Estimate (NORMAL) Platelet Morphology (NORMAL) RBC Morph Micro Appear (NORMAL) Sodium (135-145) mmol/L Potassium (3.5-4.5) mmol/L Chloride (101-111) mmol/L Carbon Dioxide (21-32) mmol/L Anion Gap (6-13) BUN (6-20) mg/dL Creatinine (0.6-1.3) mg/dL Estimated GFR (MDRD) (>89) Glucose (74-104) mg/dL POC Whole Bld Glucose 170 148 (70-100) mg/dL Calcium (8.5-10.3) mg/dL Total Bilirubin (0.2-1.0) mg/dL AST (10-42) IU/L ALT (10-60) IU/L Alkaline Phosphatase (42-121) IU/L Total Protein (6.4-8.9) g/dL Albumin (3.2-5.5) g/dL Globulin (2.1-4.2) g/dL Albumin/Globulin Ratio (1.0-2.2) EBV DNA (PCR) Positive A (Negative) Assessment/Plan Problem List (1) Sepsis: Impression: Initial WBC 33, heart rate 132, BP 86/71 with respiratory rate of 24 Was given vancomycin and Zosyn in the ER as well as 5 L NS bolus Unsure of the source of his infection. CT chest, abdomen, pelvis, lower extremity without infectious signs. Skin intact other than a pimple on the back of his head which is draining and nonerythematous. He had a recent upper respiratory viral infection that he caught from his fiance who works with children 08/15/2024: WBC has improved to 28 this morning. He has developed a few spots of readiness. He has an area of redness on the back of his right calf which could be the source of infection. Possibility of "red man" syndrome not excluded, discontinuing vancomycin. Continue Zosyn, renally dosed to avoid toxicity. Daily BMP. Hepatitis panel negative. Lydia-Ahuja virus pending 08/16/2024: WBC continues to improve. Today it is 25.8. Redness on the back of his right leg is improving. I am continuing his Zosyn and adjusting the dose based on kidney function to prevent toxicity. I anticipate another 1 to 2 days 08/17/2024: Blood cultures remain no growth to date. Continue Zosyn while monitoring for renal toxicity. I have added doxycycline as his rash has gotten a little bit worse. Will continue IV Zosyn until leukocytosis resolves. WBC improving, went from 25.8-19.7 today 08/18/2024: His EBV test came back positive. This would explain his symptoms. I am discontinuing his Zosyn. I am keeping the doxycycline going as a precaution as he may also have a cellulitis. I am checking a CBC in the morning to verify that his white blood cell count is still trending down and anticipate discharge tomorrow Qualifiers: Acute renal failure type: unspecified Sepsis acute organ dysfunction status: with acute organ dysfunction Sepsis type: sepsis due to unspecified organism Severe sepsis acute organ dysfunction type: acute renal failure S evere sepsis shock status: with septic shock Qualified Code(s): A41.9 - Sepsis, unspecified organism; R65.21 - Severe sepsis with septic shock; N17.9 - Acute kidney failure, unspecified (2) Right calf pain: Impression: Venous duplex negative for clot X-ray knee negative. CT lower extremity with some mild tenderness findings with fat stranding concerning for myofascial tear. No fluctuance to palpation This is possibly a postviral myositis I have ordered scheduled Flexeril 3 times daily and as needed ibuprofen. He required 1 dose of oxycodone overnight, I am attempting to optimize nonnarcotic pain management (3) Acute kidney injury: Impression: IVF has been discontinued, his LATISHA has resolved (4) Transaminitis: Impression: LFTs stable. Hepatitis panel negative. Continue daily CMP. 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 Glucose has remained fairly well-controlled, with only 1 glucose level in the past 24 hours over 200 He has already been seen by our environmental educator, he will follow-up with diabetes education outpatient He will discharged with 20 units of Lantus twice daily and will have further management per PCP
[2024-08-18] MEDS: ENOXAPARIN 60 MG/0.6 ML SYRINGE SUBQ SCH (21:04)
[2024-08-18 23:36] VITALS: O2SAT 96
[2024-08-19 05:20] LABS: BASOPHILS % (AUTO) 0.9 %; EOSINOPHILS % (AUTO) 2.5 %; HCT - HEMATOCRIT 42.5 % (42.0-52.0); HGB - HEMOGLOBIN 14.1 g/dL (14.0-18.0); LYMPHOCYTES % (AUTO) 19.7 %; MEAN CORPUSCULAR HEMOGLOBIN 30.4 pg (27.0-31.0); MEAN CORPUSCULAR HGB CONC 33.2 g/dL (32.0-36.0); MEAN CORPUSCULAR VOLUME 91.6 fL (80.0-94.0); MEAN PLATELET VOLUME 11.5 fL (7.4-11.4); MONOCYTES % (AUTO) 7.8 %; NEUTROPHILS % (AUTO) 60.5 %; PLT - PLATELET COUNT 270 10^3/uL (130-450); RED BLOOD COUNT 4.64 10^6/uL (4.70-6.10); RED CELL DISTRIBUTION WIDTH 13.2 % (12.0-15.0); WHITE BLOOD COUNT 12.5 x10^3/uL (4.8-10.8)
[2024-08-19 05:28] LABS: ALBUMIN/GLOBULIN RATIO 0.7 (1.0-2.2); CALCIUM 8.4 mg/dL (8.5-10.3); CREATININE 0.7 mg/dL (0.6-1.3); POTASSIUM 3.5 mmol/L (3.5-4.5); TOTAL PROTEIN 7.3 g/dL (6.4-8.9)
[2024-08-19 05:30] LABS: ABNORMAL LYMPHS % (MANUAL) 0 %
[2024-08-19 06:48] LABS: BAND NEUTROPHILS % (MANUAL) 15 %; EOSINOPHILS # (MANUAL) 0.3 10^3/uL (0-0.7); LYMPHOCYTES # (MANUAL) 2.1 10^3/uL (1.5-3.5); LYMPHOCYTES % (MANUAL) 17 %; METAMYELOCYTES % (MANUAL) 2 %; MONOCYTES # (MANUAL) 0.8 10^3/uL (0.0-1.0); MYELOCYTES % (MANUAL) 2 %; NEUTROPHILS # (MANUAL) 8.9 10^3/uL (1.5-6.6)
[2024-08-19 06:49] LABS: DIFFERENTIAL COMMENT MANUAL DIFFERENTIAL; PLATELET ESTIMATE, MANUAL NORMAL (130-450,000) (NORMAL); PLATELET MORPHOLOGY NORMAL APPEARANCE (NORMAL); RBC MORPHOLOGY (MULTIPLE) NORMAL APPEARANCE (NORMAL); WBC MORPHOLOGY (MULTIPLE) NORMAL APPEARANCE (NORMAL)
[2024-08-19 07:36] VITALS: BP 165/97; TEMP 97.3
--- NOTE | 2024-08-19 15:04 | Discharge Summary ---
Discharge Summary Admit Date: 08/14/24 Discharge Date: 08/19/24 Discharging Provider: Isma John NP Primary Care Provider: No PCP yet, Referral made to [facility] Code Status: Attempt Resuscitation DIAGNOSES Admission Diagnoses: Severe sepsis with acute organ dysfunction Right calf pain Acute kidney injury Transaminitis Hyperglycemia Discharge Diagnoses with Status of Each Condition: Severe sepsis with acute organ dysfunctionEBV positive, this is likely severe viral illness Right calf painpostviral, managed with [id number] pain medicine Acute kidney injuryresolved Transaminitissuspect NAFLD, follow-up with PCP Hyperglycemiathis is type 2 diabetes. He has been started on Lantus HPI History of Present Illness: 33-year-old male who recently recovered from an upper respiratory illness presents with pain in his right calf. He reports 1 episode of fevers a week ago that resolved spontaneously. He denies chest pain, dyspnea, bowel irregularity. He reports that he thinks he caught his viral illness from his fiance, who works with children In the ER, workup was significant for WBC 33, creatinine 2.1, lactic acid 5, elevated LFTs, elevated CRP. UA without concern for infection. Respiratory viral panel negative, Drug screen positive for opiates, but he had already received [place] in the ER. He also had low blood pressures which responded to sepsis fluids. CT chest, abdomen, pelvis, lower extremity were nonspecific for infectious source. Venous duplex was negative for clot. Hospitalist was contacted for admission for sepsis of unknown origin HOSPITAL COURSE Hospital Course: Patient was admitted into the hospital and started on sepsis antibiotics with Zosyn and vancomycin. EBV test came back positive, antibiotics were de- escalated. He has an area of redness on his right calf that does look cellulitic, so I continued his doxycycline and his white blood cell count continued to improve. Today, he is afebrile, VSS, WBC trending back to normal. He is being discharged to finish course of doxycycline. He was hyperglycemic on presentation, A1c was checked and found to be 10.6. He was started on SSI and Lantus. He is being discharged with 20 units of Lantus twice daily and with blood glucose monitoring supplies. He will follow-up with PCP regarding further management. He is already been seen by the certified lactation educator ALLERGIES Allergies Allergy/AdvReac Type Severity Reaction Status Date / Time No Known Drug Allergies Allergy Verified 08/14/24 09:00 MEDICATIONS Ambulatory Orders Medication Instructions Recorded Confirmed cyclobenzaprine 10 mg tablet 10 mg PO TID 20 days #60 tabs 08/19/24 diabetic supplies, miscellan. #1 ea 08/19/24 doxycycline hyclate 100 mg tablet 100 mg PO BID 4 days #8 tabs 08/19/24 insulin glargine 100 unit/mL (3 20 unit (0.2 mL) subcut BID 0 days 08/19/24 mL) subcutaneous pen (Lantus #15 mL Solostar U-100 Insulin) PHYSICAL EXAM AT DISCHARGE Vital Signs: Vital Signs x48h Temp Pulse Resp BP Pulse Ox 08/19/24 07:35 36.3 C L 79 20 165/97 H 96 General Appearance: positive No acute distress and Alert Eyes Bilateral: positive Normal inspection ENT: positive ENT inspection nml Neck: positive Nml inspection Respiratory: positive Chest non-tender Cardiovascular: positive Regular rate & rhythm and No murmur Peripheral Pulses: positive 2+ Abdomen: positive Non-tender Back: positive Nml inspection Skin: positive Other (Cellulitic rash on right leg) Extremities: positive Other (Cellulitic rash on right leg) Neurologic/Psychiatric: positive Oriented x3 LABS 08/19/24 04:48 08/19/24 04:48 FOLLOW UP Follow Up: Patient is to establish himself with a PCP. Referral made to [facility] TIME SPENT Time Spent in Discharge (Minutes): 40 Discharge Plan Discharge Patient Disposition: Home, Self Care Condition: Fair Prescriptions: New cyclobenzaprine 10 mg Tablet 10 mg PO TID 20 Days Qty: 60 0RF doxycycline hyclate 100 mg Tablet 100 mg PO BID 4 Days Qty: 8 0RF insulin glargine [Lantus Solostar U-100 Insulin] 100 unit/mL (3 mL) insulin pen 20 unit subcut BID Qty: 15 3RF (DME) diabetic supplies, miscellan. Misc See Rx Instructions .Route Qty: 1 0RF Rx Instructions: As directed Activity Restrictions: No Restrictions Diet: Regular Health Concerns: You came into the hospital with what appeared to be sepsis after a viral illness. He tested positive for Lydia-Ahuja virus, which can cause all of the symptoms you have been having including your muscle pain in the right calf. You have what could be a postviral inflammation in your skin but I am covering you for cellulitis with doxycycline. Please take as directed until the bottle is empty. We noticed that your blood sugar was high, we checked an A1c which is a 3-month average of your blood sugar. It was high, meaning that you have type 2 diabetes. You met with the business intelligence reporting analyst/certified lactation educator regarding resources after discharge. I am ordering Lantus which is a long-acting insulin. You will take this twice daily until otherwise directed. I am also writing you for a glucose meter to use as directed by the certified lactation educator. I would encourage you to lose weight. Your liver function tests are abnormal, and I believe that this is fatty liver disease. With diet and exercise, this may improve. Losing weight would also improve your insulin needs and overall quality of life. I am writing your work note to excuse you from work while you were in the hospital. Print Language: Spanish Patient Instructions: NAFLD, Diabetes Dx Stand Alone Forms: PCP List
== END 2024-08-19 13:59 | disposition home or self-care (01) | DRG 871 ==
LOC: ED 08:40 → MS2 16:23
PROVIDERS: ADMIT Nurse Practitioner Acute Care; ATTEND Nurse Practitioner Acute Care
DX: L03.115 Cellulitis of right lower limb; E66.01 Morbid (severe) obesity due to excess calories; R23.8 Other skin changes; Z79.4 Long term (current) use of insulin; R65.21 Severe sepsis with septic shock; A41.9 Sepsis, unspecified organism; N17.9 Acute kidney failure, unspecified; F17.220 Nicotine dependence, chewing tobacco, uncomplicated; E11.65 Type 2 diabetes mellitus with hyperglycemia; Z87.09 Personal history of other diseases of the respiratory system; Z68.43 Body mass index [BMI] 50.0-59.9, adult; R74.01 Elevation of levels of liver transaminase levels